=== PATIENT | female | born 1935 | race Caucasian/White ===

== ENCOUNTER 2016-04-20 07:26 | Inpatient (IN) | payer MEDICARE ==
[2016-04-20] VITALS (7 sets, daily range): BP systolic 155–182; BP diastolic 78–80; O2SAT 93–95
[~2016-04-20] VITALS: Ht 160 cm; Wt 69.2 kg
[~2016-04-20 07:26] MED LIST: /ACETCOD2T PO; ACET-71 PO; APAP500T PO; ASPI325T28 PO; AZOR10TA3 PO; AZOR5TAB4 PO; Amlodipine Besylate PO; CALC500T49 PO; CARV3.12 PO; CYMB1CAP4 PO; FLAX1000 PO; GLUCTAB6 PO; HYDR25TAB PO; IBUP600T26 PO; LIDO5TD TD; MAGN250T9 PO; PRIN10TA PO; TRAM50TA2 PO; TYLE325T5 PO; Tramadol Hcl PO; VIT B-12 PO; VIT E PO; VIT250TA PO; VITA100037 PO; VITMTA PO; [UNRECOGNIZED DRUG - CODE] PO
--- NOTE | 2016-04-20 08:02 | REP ---
Clinical: Weakness. Comparison: 04/09/2012. Findings: Mediastinum and cardiac silhouette are stable. Lung leary demonstrate chronic interstitial changes without acute consolidation, effusion, or pneumothorax. Skeletal structures stable. Impression: Chronic stable changes. No acute cardiopulmonary process. Signed by Kj De La Rosa MD 04/20/2016 07:53 A
[2016-04-20 08:06] LABS: BASO % 0.1 % (0.0-1.0); EOS # 0.1 K/mm3 (0.0-0.50); EOS % 0.8 % (0.0-3.0); LARGE UNSTAINED CELL # 0.1 K/mm3 (0.0-0.4); LARGE UNSTAINED CELL % 1.1 % (0.0-4.0); LYMPH # 0.8 K/mm3 (1.5-4.5); LYMPH % 10.5 % (24.0-44.0); MEAN CORPUSCULAR HEMOGLOBIN 28.9 pg (27.0-33.0); MEAN CORPUSCULAR HGB CONC 31.6 g/dl (32.0-36.5); MEAN CORPUSCULAR VOLUME 91.5 fl (80.0-96.0); MONO # 0.4 K/mm3 (0.0-0.8); MONO % 5.9 % (0.0-5.0); NEUTROPHILS # 5.3 K/mm3 (1.8-7.7); NEUTROPHILS % 81.5 % (36.0-66.0); PLATELET COUNT, AUTOMATED 287 k/mm3 (150-450); RED CELL DISTRIBUTION WIDTH 13.1 % (11.5-14.5); WHITE BLOOD COUNT 6.5 K/mm3 (4.0-10.0)
[2016-04-20 08:11] LABS: INR 1.04
--- NOTE | 2016-04-20 08:24 | REP ---
Clinical: Left-sided weakness . Comparison: 06/22/2015 . Findings: Age related atrophy is appreciated. 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 The ventricles, sulci, and cisterns are normal in position and appearance. Do-white differentiation is maintained. No acute intracranial hemorrhage, mass/mass effect, pathology or trauma/injury. No evidence for acute infarction. No extra-axial fluid collection. Calvarium is intact. Paranasal sinuses and mastoid air cells are clear. 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 No evidence for acute intracranial pathology or trauma/injury. Signed by Kj De La Rosa MD 04/20/2016 08:16 A
[2016-04-20 08:31] LABS: ANION GAP 6 MEQ/L (8-16); BLOOD UREA NITROGEN 24 MG/DL (7-18); CALCIUM LEVEL 10.4 MG/DL (8.8-10.2); CARBON DIOXIDE LEVEL 30 MEQ/L (21-32); CHLORIDE LEVEL 105 MEQ/L (98-107); CREATININE FOR GFR 0.95 MG/DL (0.55-1.02); GLOMERULAR FILTRATION RATE > 60.0 (>39); GLUCOSE, FASTING 108 MG/DL (83-110); POTASSIUM SERUM 3.8 MEQ/L (3.5-5.1); SODIUM LEVEL 141 MEQ/L (136-145)
[2016-04-20 10:04] LABS: VENOUS BASE EXCESS 0.4 (-2.0-2.0); VENOUS STANDARD HCO3 24.4 MEQ/L; VENOUS TOTAL CO2 27.8 MEQ/L (24.0-28.0)
--- NOTE | 2016-04-20 10:06 | ECGEPIP ---
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
[2016-04-20] MEDS ORDERED: VITA80005 PO (10:11)
[2016-04-20] MEDS ORDERED: ASCO500T PO (10:11)
[2016-04-20] MEDS ORDERED: ASPIRIN 81 MG CHEW TABLET As Ordered ONE (10:38)
[2016-04-20 10:39] LABS: ALBUMIN 3.9 GM/DL (3.2-5.2); ALBUMIN/GLOBULIN RATIO 0.98 (1.00-1.93); ALKALINE PHOSPHATASE 93 U/L (45-117); ALT/SGPT 16 U/L (12-78); AST/SGOT 24 U/L (15-37); BILIRUBIN,DIRECT 0.1 MG/DL (0.0-0.2); BILIRUBIN,TOTAL 0.4 MG/DL (0.2-1.0); TOTAL PROTEIN 7.9 GM/DL (6.4-8.2)
[2016-04-20 10:41] LABS: VITAMIN B12 LEVEL 1263 PG/ML (247-911)
[2016-04-20] MEDS ORDERED: ISOVUE-370 76% 100ML VIAL (Q9967) As Ordered ONE (11:35)
--- NOTE | 2016-04-20 15:16 | REP ---
CT ANGIO HEAD: HISTORY: TIAs. CONTRAST: Isovue-370, 75 mL. There is no aneurysm or arteriovenous malformation. Calcified atherosclerotic plaques are present in the cavernous and supraclinoid internal carotid arteries. These produce at least mild stenosis. Calcified atherosclerotic plaques are present in the distal vertebral arteries at the craniovertebral junction. These produce at least moderate stenosis. Major intracranial vessels are patent. The vertebral arteries are equal in size. IMPRESSION: 1. There is no aneurysm or arteriovenous malformation. 2. Atherosclerotic disease as described above. Signed by Elijah Hebert MD 04/20/2016 03:19 P
--- NOTE | 2016-04-20 15:22 | REP ---
CT ANGIO NECK: HISTORY: TIAs. CONTRAST: Isovue-370, 75 mL. Calcified atherosclerotic plaques are present at the distal right common carotid artery and origins of the right external and internal carotid arteries. There is moderate stenosis of 60% of the right internal carotid artery at its origin. There is mild stenosis of 20% of the right external carotid artery at its origin. Calcified atherosclerotic plaques are present at the distal left common carotid artery and origins of the left external and internal carotid arteries. There is severe stenosis of 75% of the left internal carotid artery at its origin. There is severe stenosis of 70% of the left external carotid artery at its origin. Small calcified atherosclerotic plaques are present in the common carotid arteries in the lower neck. There is no significant stenosis. Calcified atherosclerotic plaques are present in the vertebral arteries at the craniovertebral junction. The plaques produce at least moderate stenosis. Calcified atherosclerotic plaques are present at the origins of the great vessels and vertebral arteries. There is no significant stenosis. The left vertebral artery arises from the aortic arch. IMPRESSION: 1. Moderate stenosis of 60% of the right internal carotid artery at its origin. 2. Severe stenosis of 75% of the left internal carotid artery at its origin. Signed by Elijah Hebert MD 04/20/2016 03:25 P
--- NOTE | 2016-04-20 15:59 | EDDOCDS ---
Physician Documentation [facility] Name: Sukh Wright Age: 80 yrs Sex: Female : 1935 Arrival Date: 04/20/2016 Time: 07:26 Bed 21 Private MD: Daysi Chatman A Disposition: 04/20/16 10:46 Hospitalization ordered by Alfredo Rivera for Inpatient Admission. Preliminary diagnosis is Transient cerebral ischemic attack, unspecified. - Bed requested for PCU. - Status is Inpatient Admission. hs1 - Condition is Stable. - Problem is new. - Symptoms are resolved. Historical: - Allergies: no known allergies; - Home Meds: 1. aspirin 325 mg Oral TbEC 1 tab once daily (Last dose: 04/19/2016 19:00) 2. Tylenol 325 mg Oral tab 2 tabs as needed for heachache (Last dose: 04/18/2016) - PMHx: blind; Hypertension; - PSHx: Pacemaker Insertion; - Family history: Not pertinent. - Social history: Smoking status: Patient states was never smoker of tobacco. No barriers to communication noted, The patient speaks fluent Swazi. - : The pt / caregiver states he / she is not on anticoagulants. Home medication list is obtained from family members. - Exposure Risk Screening:: None identified. Vital Signs: 04/20 07:38 BP 198 / 95; Pulse 90; Resp 18; Temp 97.8(O); Pulse Ox 97% on R/A; Pain 0/10; nb2 07:48 Weight 70.03 kg / 154.39 lbs; Height 5 ft. 3 in. (160.02 cm); ja5 08:18 BP 192 / 86 (auto/); ja5 08:18 Pulse 80 MON; Pulse Ox 94% ; ja5 09:40 Pulse 82 MON; Pulse Ox 96% ; ja5 09:41 BP 198 / 84 (auto/); ja5 09:52 BP 186 / 83 (auto/); ja5 09:54 Pulse 82 MON; Pulse Ox 95% ; ja5 09:56 BP 188 / 83 (auto/); ja5 09:56 Pulse 82 MON; Pulse Ox 96% ; ja5 10:11 BP 188 / 84 (auto/); ja5 10:11 Pulse 82 MON; Pulse Ox 96% ; ja5 10:25 Pulse 78 MON; Pulse Ox 95% ; ja5 10:26 BP 181 / 84 (auto/); ja5 10:40 Pulse 78 MON; Pulse Ox 93% ; ja5 10:41 BP 182 / 81 (auto/); ja5 10:55 Pulse 80 MON; Pulse Ox 95% ; ja5 10:56 BP 169 / 72 (auto/); ja5 11:08 Pulse 78 MON; Pulse Ox 94% ; ja5 11:11 BP 167 / 107 (auto/); ja5 11:25 Pulse 78 MON; Pulse Ox 96% ; ja5 11:26 BP 166 / 70 (auto/); ja5 11:36 Pulse Ox 97% ; ja5 11:40 Pulse 78 MON; ja5 11:41 BP 173 / 73 (auto/); ja5 11:49 Pulse 78 MON; Pulse Ox 95% ; ja5 11:56 BP 163 / 72 (auto/); ja5 12:10 Pulse 74 MON; ja5 12:11 BP 152 / 72 (auto/); ja5 12:25 Pulse 82 MON; ja5 12:26 BP 174 / 79 (auto/); ja5 12:33 BP 174 / 79; Pulse 94; Resp 20; Temp 97.9(O); Pulse Ox 97% on R/A; Pain 0/10; ja5 12:39 Pulse 88 MON; Pulse Ox 96% ; ja5 12:41 BP 161 / 75 (auto/); ja5 12:55 Pulse 74 MON; Pulse Ox 94% ; ja5 12:56 BP 172 / 77 (auto/); ja5 13:11 BP 166 / 79 (auto/); ja5 13:15 Pulse 74 MON; Pulse Ox 92% ; ja5 13:25 Pulse 78 MON; Pulse Ox 95% ; ja5 13:26 BP 171 / 79 (auto/); ja5 14:25 Pulse 76 MON; Pulse Ox 95% ; ja5 14:26 BP 222 / 133 (auto/); ja5 14:27 Pulse 82 MON; Pulse Ox 95% ; ja5 14:29 BP 221 / 90 (auto/); ja5 14:33 Pulse 74 MON; Pulse Ox 96% ; ja5 14:34 BP 205 / 88 (auto/); ja5 14:59 Pulse 80 MON; Pulse Ox 95% ; ja5 15:00 BP 208 / 93 (auto/); ja5 07:48 Body Mass Index 27.35 (70.03 kg, 160.02 cm) ja5 MDM: 07:36 Professor Of Pathology/Pulse Ox/q 15 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 sd1 07:36 IV Saline Lock ordered. sd1 07:36 Rhythm Strip to chart ordered. sd1 07:37 Basic Metabolic Profile Ordered. EDMS 07:37 CBC with Diff Ordered. EDMS 07:37 Partial Thromboplastin Time Ordered. EDMS 07:38 Prothrombin Time Profile\E\INR Ordered. EDMS 07:38 Chest, 1 View Ordered. EDMS 07:38 Type & Screen Ordered. EDMS 07:38 CT Head Without Contrast Ordered. EDMS 07:38 ECG WITH READING ER PHYS+CARDIAG ordered. EDMS 07:48 BED REQUEST+ADM ordered. EDMS 09:05 Basic Metabolic Profile Reviewed. sd1 09:05 CBC with Diff Reviewed. sd1 09:05 Partial Thromboplastin Time Reviewed. sd1 09:05 Prothrombin Time Profile\E\INR Reviewed. sd1 09:05 Type & Screen Reviewed. sd1 09:05 CT Head Without Contrast Reviewed. sd1 09:05 Chest, 1 View Reviewed. sd1 09:07 UA Ordered. EDMS 09:07 Ammonia ([place] Tube on Ice, Not Pea Green) Ordered. EDMS 09:07 Venous Blood Gas (large pea green tube on ice) Ordered. EDMS 09:07 Urine Culture Ordered. EDMS 09:24 Financial registration complete. lg 09:34 [facility] Payment Agreement was scanned into [employer] and attached to record. lg 09:38 Basic Metabolic Profile Reviewed. sd1 09:38 TROPONIN Reviewed. sd1 10:09 Basic Metabolic Profile Reviewed. sd1 10:09 Venous Blood Gas (large pea green tube on ice) Reviewed. sd1 10:09 CARDIAC INJURY PROFILE Reviewed. sd1 10:09 TROPONIN Reviewed. sd1 10:09 THYROID STIMULATING HORMONE Reviewed. sd1 10:11 Aspirin Chewable Tablet 324 mg PO once ordered. sd1 10:13 Drug Eval Toxicology ED Only Ordered. EDMS 10:17 ACETAMINOPHEN LEVEL Ordered. EDMS 10:17 ETHYL ALCOHOL (ETHANOL) Ordered. EDMS 10:17 LIVER PROFILE Ordered. EDMS 10:17 SALICYLATE LEVEL Ordered. EDMS 10:17 VITAMIN B12 LEVEL Ordered. EDMS 11:28 CARDIAC INJURY PROFILE Ordered. EDMS 11:28 CARDIAC INJURY PROFILE Ordered. EDMS 11:28 TROPONIN Ordered. EDMS 11:28 TROPONIN Ordered. EDMS 11:29 Admission / Observation Status ordered. EDMS 11:29 ECHOCARD,DOPPLER/COLOR FLOW ordered. EDMS 11:29 CT ANGIO HEAD Ordered. EDMS 11:29 CT ANGIO NECK Ordered. EDMS 11:29 NPO DIET ordered. EDMS Administered Medications: 10:41 Drug: Aspirin 324 mg [aspirin 81 mg chewable tablet (4 tabs)] Route: PO; ja5 Signatures: Dispatcher [employer] EDMary Rausch MD MD sd1 Corwin Prajapati, Reg Reg lg Lizy Feliz, RN RN hs1 Fernanda Martines, BENOIT RN sls2 Laura Encinas,RN RN ja5 The chart was reviewed and I authenticate all verbal orders and agree with the evaluation and treatment provided.Corrections: (The following items were deleted from the chart) 09:13 09:07 CARDIAC INJURY PROFILE+LAB ordered. EDGA EDMS 09:13 09:07 TROPONIN+LAB ordered. EDMS EDMS 09:13 09:09 THYROID STIMULATING HORMONE+LAB ordered. EDMS EDMS 10:17 10:13 ACETAMINOPHEN LEVEL+LAB ordered. EDMS EDMS 10:17 10:13 ETHYL ALCOHOL (ETHANOL)+LAB ordered. EDMS EDMS 10:17 10:13 LIVER PROFILE+LAB ordered. EDMS EDMS 10:17 10:13 SALICYLATE LEVEL+LAB ordered. EDMS EDMS 10:17 10:14 VITAMIN B12 LEVEL+LAB ordered. EDMS EDMS Attachments: 09:34 [facility]
--- NOTE | 2016-04-20 16:00 | EDDOCDS ---
Nurse's Notes [facility] Name: Sukh Wright Age: 80 yrs Sex: Female : 1935 Arrival Date: 04/20/2016 Time: 07:26 Bed 21 Private MD: Daysi Chatman A Diagnosis: Transient cerebral ischemic attack, unspecified Presentation: 04/20 07:29 Presenting complaint: EMS states: were called to residence for possible stroke by 4 family. Allegedly patient was last seen well yesterday at noon. EMS found left leg to be weak. ." EMS states that patient was answering questions well and then was "seeing snow and krista of hay in the ambulance". Suicide/Homicide risk assessment- the patient denies having any suicidal and/or homicidal ideations and does not present with any other emotional, behavioral or mental health complaints. Status: Patient is not a field service rep or dependent. Transition of care: patient was not received from another setting of care. Care prior to arrival: See EMS report. Saline lock initiated. Glucose check. 126 mg/dl. 07:29 Acuity: TALI Level 2 [facility] 07:29 Method Of Arrival: Ambulance [facility] 07:30 Adult Sepsis Screening: Patient has new or worsening altered mentation ([address] [facility] Patient's respiratory rate is less than 22. Systolic blood pressure is greater than 100. Patient has a qSOFA score of 1- Negative Sepsis Screen. Historical: - Allergies: no known allergies; - Home Meds: 1. aspirin 325 mg Oral TbEC 1 tab once daily (Last dose: 04/19/2016 19:00) 2. Tylenol 325 mg Oral tab 2 tabs as needed for heachache (Last dose: 04/18/2016) - PMHx: blind; Hypertension; - PSHx: Pacemaker Insertion; - Family history: Not pertinent. - Social history: Smoking status: Patient states was never smoker of tobacco. No barriers to communication noted, The patient speaks fluent Eritrean. - : The pt / caregiver states he / she is not on anticoagulants. Home medication list is obtained from family members. - Exposure Risk Screening:: None identified. Screenin:44 Screening information is obtained from the patient, family members. Fall risk: At risk ja5 due to Blindness. Assistance ADL's: Requires assistance with meal preparation, this assistance is provided by family members, bathing, assistance is provided by family members, dressing, assistance is provided by family members, housework, assistance is provided by family members, medication administration, assistance is provided by family members. Abuse/DV Screen: The patient / caregiver reports he/she is: not in a situation that causes fear, pain or injury. Nutritional screening: On no prescribed diet. Advance Directives: Currently, there is a health care proxy, Alysia Rodriguez, daughter. There is an active DNR order and the pt has a copy here at this time. There is a living will, and a copy is available at this time. There is an active Power of Belt Maker Helper, Alysia Rodriguez, daughter. home support is adequate. Assessment: 07:40 Neurological: Level of Consciousness is awake, alert, Oriented to person, place, time, ja5 Benzene Worker are equal bilaterally Moves all extremities. Speech is normal, Facial symmetry appears normal. 07:58 General: Appears in no apparent distress, comfortable, Behavior is appropriate for age, ja5 cooperative. Pain: Denies pain. Neurological: Level of Consciousness is awake, alert, Oriented to person, place, time, Benzene Worker are equal bilaterally Moves all extremities. Speech is normal, Facial symmetry appears normal. Cardiovascular: Capillary refill < 3 seconds Heart tones S1 S2 present. Respiratory: Airway is patent Respiratory effort is even, unlabored, Breath sounds are clear bilaterally. Derm: Skin is pink, warm & dry. Musculoskeletal: Circulation, motion, and sensation intact. 08:32 General: Patient is laying in stretcher asleep, arouses easily and is alert and ja5 oriented. Patient denies dizziness, numbness, her speech is clear, she has had intermittent moments of confusion/hallucinations of which the provider is aware. At 0820 patient stated she sees a leopard in the room and asked what I was wearing on my head. Respirations are even and unlabored, color is pink. SR with PVS showing on cardiac exercise physiologist. Bed in low position, call warren in reach, daughter is at bedside. . 09:55 General: Patient laying supine in stretcher, denies dizziness is not currently having ja5 any confusion. Respirations are even and unlabored, color is pink, O2 sat 96% on RA. Daughter is currently at bedside, patient states she has no needs at this time.. 10:42 General: Patient is awake, alert and oriented, denies dizziness, speech is clear, she ja5 moves all extremities. Respirations are even and unlabored, color is pink, SR on cardiac exercise physiologist, as she lays in stretcher with her daughter at the bedside. Blood pressure has been consistently elevated, see vital signs, provider has been made aware of these trends.. 12:34 General: Patient back from her CT scan which she tolerated well. She is back in room ja5 laying in her stretcher, denies dizziness, tingling, numbness, her speech is clear and moves all extremities. SR on cardiac exercise physiologist, respirations are even and unlabored, color is pink, O\\T\\ sat reading 97% on room air. Call warren in reach, bed in low position.. 14:29 General: Pt lying on stretcher. Asking, "what is the breed of that dog over there?" Pt goldy is aware that she is in the hospital. Pt has pulled out right antecubital saline lock. No bleeding from site. Left forearm saline lock wrapped with Conform dressing. Vital Signs: 07:38 BP 198 / 95; Pulse 90; Resp 18; Temp 97.8(O); Pulse Ox 97% on R/A; Pain 0/10; nb2 07:48 Weight 70.03 kg; Height 5 ft. 3 in. (160.02 cm); ja5 08:18 BP 192 / 86 (auto/); ja5 08:18 Pulse 80 MON; Pulse Ox 94% ; ja5 09:40 Pulse 82 MON; Pulse Ox 96% ; ja5 09:41 BP 198 / 84 (auto/); ja5 09:52 BP 186 / 83 (auto/); ja5 09:54 Pulse 82 MON; Pulse Ox 95% ; ja5 09:56 BP 188 / 83 (auto/); ja5 09:56 Pulse 82 MON; Pulse Ox 96% ; ja5 10:11 BP 188 / 84 (auto/); ja5 10:11 Pulse 82 MON; Pulse Ox 96% ; ja5 10:25 Pulse 78 MON; Pulse Ox 95% ; ja5 10:26 BP 181 / 84 (auto/); ja5 10:40 Pulse 78 MON; Pulse Ox 93% ; ja5 10:41 BP 182 / 81 (auto/); ja5 10:55 Pulse 80 MON; Pulse Ox 95% ; ja5 10:56 BP 169 / 72 (auto/); ja5 11:08 Pulse 78 MON; Pulse Ox 94% ; ja5 11:11 BP 167 / 107 (auto/); ja5 11:25 Pulse 78 MON; Pulse Ox 96% ; ja5 11:26 BP 166 / 70 (auto/); ja5 11:36 Pulse Ox 97% ; ja5 11:40 Pulse 78 MON; ja5 11:41 BP 173 / 73 (auto/); ja5 11:49 Pulse 78 MON; Pulse Ox 95% ; ja5 11:56 BP 163 / 72 (auto/); ja5 12:10 Pulse 74 MON; ja5 12:11 BP 152 / 72 (auto/); ja5 12:25 Pulse 82 MON; ja5 12:26 BP 174 / 79 (auto/); ja5 12:33 BP 174 / 79; Pulse 94; Resp 20; Temp 97.9(O); Pulse Ox 97% on R/A; Pain 0/10; ja5 12:39 Pulse 88 MON; Pulse Ox 96% ; ja5 12:41 BP 161 / 75 (auto/); ja5 12:55 Pulse 74 MON; Pulse Ox 94% ; ja5 12:56 BP 172 / 77 (auto/); ja5 13:11 BP 166 / 79 (auto/); ja5 13:15 Pulse 74 MON; Pulse Ox 92% ; ja5 13:25 Pulse 78 MON; Pulse Ox 95% ; ja5 13:26 BP 171 / 79 (auto/); ja5 14:25 Pulse 76 MON; Pulse Ox 95% ; ja5 14:26 BP 222 / 133 (auto/); ja5 14:27 Pulse 82 MON; Pulse Ox 95% ; ja5 14:29 BP 221 / 90 (auto/); ja5 14:33 Pulse 74 MON; Pulse Ox 96% ; ja5 14:34 BP 205 / 88 (auto/); ja5 14:59 Pulse 80 MON; Pulse Ox 95% ; ja5 15:00 BP 208 / 93 (auto/); ja5 07:48 Body Mass Index 27.35 (70.03 kg, 160.02 cm) ja5 Vitals: 07:38 Log In Time N/A - ambulance arrival. nb2 ED Course: 07:25 The patient / caregiver is instructed regarding the plan of care and ED course. jc4 07:28 Patient visited by Lavinia Ahn, Monogram Technician. lbd 07:28 Patient moved to Waiting lbd 07:29 Daysi Chatman is Private Physician. lbd 07:29 Rola Brown RN is Primary Nurse. lbd 07:29 [place], BENOIT is Primary Nurse. lbd 07:29 Laura Encinas,BENOIT is Primary Nurse. lbd 07:29 Patient moved to 4 lbd 07:34 Triage Initiated jc4 07:35 Mary Bonilla MD is Attending Physician. sd1 07:35 Patient visited by Mary Bonilla MD. sd1 07:39 Patient visited by Amber Salazar. nb2 07:44 EKG done. (by ED staff). Reviewed by Mary Bonilla MD. jrd 07:57 Basic Metabolic Profile Sent. ja5 07:57 CBC with Diff Sent. ja5 07:57 Partial Thromboplastin Time Sent. ja5 07:57 Prothrombin Time Profile\\E\\INR Sent. ja5 07:57 Type & Screen Sent. ja5 08:01 Maintain field IV. Dressing intact. Site clean & dry. Gauge & site: 20g left forearm. ja5 08:02 Inserted saline lock: 20 gauge in right antecubital area. ja5 08:03 Chest, 1 View Returned. EDMS 08:05 Primary Nurse role handed off by Rola Brown RN mlb1 08:44 Patient visited by Laura Encinas RN. ja5 08:44 CT Head Without Contrast Returned. EDMS 09:34 [facility] Payment Agreement was scanned into [employer] and attached to record. lg 09:55 Patient visited by Laura Encinas RN. ja5 09:59 Venous Blood Gas (large pea green tube on ice) Sent. jc4 09:59 Ammonia (Little Green Tube on Ice, Not Pea Green) Sent. jc4 10:44 Patient visited by Laura Encinas RN. ja5 10:46 Alfredo Rivera is Hospitalizing Provider. sd1 10:49 ELECTROCARDIOGRAM ADULT Returned. EDMS 12:18 Patient moved to Admit Hold kpj 13:31 Patient visited by Lorie Segundo. cmb 13:32 Patient visited by Lorie Segundo. cmb 13:32 Verbal reassurance given. cmb 14:24 Patient visited by Lorie Segundo. cmb 15:13 Patient moved to [facility] 15:40 CT ANGIO HEAD Returned. EDMS 15:40 CT ANGIO NECK Returned. EDMS Administered Medications: 10:41 Drug: Aspirin 324 mg [aspirin 81 mg chewable tablet (4 tabs)] Route: PO; ja5 Order Results: Lab Order: Basic Metabolic Profile; SPEC' 04/20/16 07:55 Test: GLUCOSE, FASTING; Value: 108; Range: 83-110; Units: MG/DL; Status: F Test: BLOOD UREA NITROGEN; Value: 24; Range: 7-18; Abnormal: Above high normal; Units: MG/DL; Status: F Test: CREATININE FOR GFR; Value: 0.95; Range: 0.55-1.02; Units: MG/DL; Status: F Test: GLOMERULAR FILTRATION RATE; Value: > 60.0; Range: >39; Status: F Test: SODIUM LEVEL; Value: 141; Range: 136-145; Units: MEQ/L; Status: F Test: POTASSIUM SERUM; Value: 3.8; Range: 3.5-5.1; Units: MEQ/L; Status: F Test: CHLORIDE LEVEL; Value: 105; Range: 98-107; Units: MEQ/L; Status: F Test: CARBON DIOXIDE LEVEL; Value: 30; Range: 21-32; Units: MEQ/L; Status: F Test: ANION GAP; Value: 6; Range: 8-16; Abnormal: Below low normal; Units: MEQ/L; Status: F Test: CALCIUM LEVEL; Value: 10.4; Range: 8.8-10.2; Abnormal: Above high normal; Units: MG/DL; Status: F Test Note: ; Units are mL/min/1.73 m2 Chronic Kidney Disease Staging per NKF: Stage I & II GFR >=60 Normal to Mildly Decreased Stage III GFR 30-59 Moderately Decreased Stage IV GFR 15-29 Severely Decreased Stage V GFR <15 Very Little GFR Left ESRD GFR <15 on CEMETERY LABORER Lab Order: CBC with Diff; SPEC' 04/20/16 07:56 Test: WHITE BLOOD COUNT; Value: 6.5; Range: 4.0-10.0; Units: K/mm3; Status: F Test: RED BLOOD COUNT; Value: 3.84; Range: 4.00-5.40; Abnormal: Below low normal; Units: M/mm3; Status: F Test: HEMOGLOBIN; Value: 11.1; Range: 12.0-16.0; Abnormal: Below low normal; Units: g/dl; Status: F Test: HEMATOCRIT; Value: 35.2; Range: 36.0-47.0; Abnormal: Below low normal; Units: %; Status: F Test: MEAN CORPUSCULAR VOLUME; Value: 91.5; Range: 80.0-96.0; Units: fl; Status: F Test: MEAN CORPUSCULAR HEMOGLOBIN; Value: 28.9; Range: 27.0-33.0; Units: pg; Status: F Test: MEAN CORPUSCULAR HGB CONC; Value: 31.6; Range: 32.0-36.5; Abnormal: Below low normal; Units: g/dl; Status: F Test: RED CELL DISTRIBUTION WIDTH; Value: 13.1; Range: 11.5-14.5; Units: %; Status: F Test: PLATELET COUNT, AUTOMATED; Value: 287; Range: 150-450; Units: k/mm3; Status: F Test: NEUTROPHILS %; Value: 81.5; Range: 36.0-66.0; Abnormal: Above high normal; Units: %; Status: F Test: LYMPH %; Value: 10.5; Range: 24.0-44.0; Abnormal: Below low normal; Units: %; Status: F Test: MONO %; Value: 5.9; Range: 0.0-5.0; Abnormal: Above high normal; Units: %; Status: F Test: EOS %; Value: 0.8; Range: 0.0-3.0; Units: %; Status: F Test: BASO %; Value: 0.1; Range: 0.0-1.0; Units: %; Status: F Test: LARGE UNSTAINED CELL %; Value: 1.1; Range: 0.0-4.0; Units: %; Status: F Test: NEUTROPHILS #; Value: 5.3; Range: 1.8-7.7; Units: K/mm3; Status: F Test: LYMPH #; Value: 0.8; Range: 1.5-4.5; Abnormal: Below low normal; Units: K/mm3; Status: F Test: MONO #; Value: 0.4; Range: 0.0-0.8; Units: K/mm3; Status: F Test: EOS #; Value: 0.1; Range: 0.0-0.50; Units: K/mm3; Status: F Test: BASO #; Value: 0.0; Range: 0.0-0.2; Units: K/mm3; Status: F Test: LARGE UNSTAINED CELL #; Value: 0.1; Range: 0.0-0.4; Units: K/mm3; Status: F Lab Order: Partial Thromboplastin Time; 04/20/16 07:55 Test: PARTIAL THROMBOPLASTIN TIME; Value: 32.6; Range: 26.6-37.1; Units: SECONDS; Status: F Lab Order: Prothrombin Time Profile\\E\\INR; 04/20/16 07:55 Test: PROTHROMBIN TIME; Value: 13.7; Range: 12.3-14.5; Units: SECONDS; Status: F Test: INR; Value: 1.04; Status: F Test Note: ; THERAPUTIC HUMAN INR VALUES INDICATIONS NORMAL RANGES PROPHYLAXIS/TREATMENT OF: VENOUS THROMBOSIS 2.0-3.0 PULMONARY EMBOLISM 2.0-3.0 PREVENTION OF SYSTEMIC EMBOLISM FROM: TISSUE HEART VALVES 2.0-3.0 ACUTE MYOCARDIAL INFARCTION 2.0-3.0 VALVULAR HEART DISEASE 2.0-3.0 ATRIAL FIBRILLATION 2.0-3.0 MECHANICAL VALVES(HIGH RISK) 2.5-3.5 RECURRENT MYOCARDIAL INFARCTION 2.5-3.5 Lab Order: Type & Screen; 04/20/16 07:56 Test: BLOOD TYPE; Value: B POS; Status: F Test: AB SCREEN (INDIRECT MOO)VIS; Value: NEGATIVE; Status: F Lab Order: Ammonia (Little Green Tube on Ice, Not Pea Green); 04/20/16 09:36 Test: AMMONIA; Value: < 10; Range: <32; Units: uMOL/L; Status: F Lab Order: Venous Blood Gas (large pea green tube on ice); 04/20/16 09:36 Test: VENOUS PH; Value: 7.357; Range: 7.330-7.430; Units: UNITS; Status: F Test: VENOUS PARTIAL PRESSURE CO2; Value: 48.0; Range: 38.0-50.0; Units: mmHg; Status: F Test: VENOUS PARTIAL PRESSURE O2; Value: 44.0; Range: 30.0-50.0; Units: mmHg; Status: F Test: VENOUS TOTAL CO2; Value: 27.8; Range: 24.0-28.0; Units: MEQ/L; Status: F Test: VENOUS HCO3; Value: 26.3; Range: 23.0-27.0; Units: MEQ/L; Status: F Test: VENOUS BASE EXCESS; Value: 0.4; Range: -2.0-2.0; Status: F Test: VENOUS STANDARD HCO3; Value: 24.4; Units: MEQ/L; Status: F Test: VENOUS O2 SATURATION; Value: 77.0; Range: 60.0-80.0; Units: %; Status: F Lab Order: CARDIAC INJURY PROFILE; [facility]' 04/20/16 07:55 Test: CPK CREATINE PHOSPHOKINASE; Value: 188; Range: 26-192; Units: U/L; Status: F Test: CK-MB VALUE MASS; Value: 1.8; Range: 0.0-3.6; Units: NG/ML; Status: F Test: MB/CK RELATIVE INDEX; Value: 0.95; Range: < OR =4; Status: F Test Note: ; DIAGNOSIS CRITERIA MMB ng/ml Relative Index (RI) NON-AMI < or = 5 N/A DO ZONE > 5 < or = 4 AMI > 5 > 4 Lab Order: TROPONIN; SPEC' 04/20/16 07:55 Test: TROPONIN I; Value: 0.02; Range: < 0.10; Units: NG/ML; Status: F Test Note: ; Troponin I Reference Interval for Embrace LOCI: 99th Percentile= 0.00-0.045 ng/ml Risk Stratification: <= 0.10 ng/ml Decreased Risk for Adverse Clinical Events. 0.10-1.50 ng/ml Increased Risk for Adverse Clinical Events. Evaluation of additional criterion and/or repeat testing in 2-6 hours is suggested to rule out myocardial damage. >= 1.50 ng/ml Indicative of Myocardial Injury. Lab Order: THYROID STIMULATING HORMONE; 04/20/16 Test: THYROID STIMULATING HORMONE; Value: 2.690; Range: 0.358-3.740; Units: uIU/ML; Status: F Lab Order: ACETAMINOPHEN LEVEL; 04/20/16:55 Test: ACETAMINOPHEN LEVEL; Value: < 2.0; Range: 10.0-30.0; Abnormal: Below low normal; Units: UG/ML; Status: F Lab Order: ETHYL ALCOHOL (ETHANOL); 04/20/16: Test: ETHYL ALCOHOL (ETHANOL); Value: < 0.003; Range: 0.000-0.010; Units: %; Status: F Lab Order: LIVER PROFILE; 04/20/16 Test: AST/SGOT; Value: 24; Range: 15-37; Units: U/L; Status: F Test: ALT/SGPT; Value: 16; Range: 12-78; Units: U/L; Status: F Test: ALKALINE PHOSPHATASE; Value: 93; Range: 45-117; Units: U/L; Status: F Test: BILIRUBIN,TOTAL; Value: 0.4; Range: 0.2-1.0; Units: MG/DL; Status: F Test: BILIRUBIN,DIRECT; Value: 0.1; Range: 0.0-0.2; Units: MG/DL; Status: F Test: TOTAL PROTEIN; Value: 7.9; Range: 6.4-8.2; Units: GM/DL; Status: F Test: ALBUMIN; Value: 3.9; Range: 3.2-5.2; Units: GM/DL; Status: F Test: ALBUMIN/GLOBULIN RATIO; Value: 0.98; Range: 1.00-1.93; Abnormal: Below low normal; Status: F Lab Order: SALICYLATE LEVEL; 04/20/16 Test: SALICYLATE LEVEL; Value: < 1.7; Range: 5.0-30.0; Abnormal: Below low normal; Units: MG/DL; Status: F Lab Order: VITAMIN B12 LEVEL; 04/20/16: Test: VITAMIN B12 LEVEL; Value: 1263; Range: 247-911; Abnormal: Above high normal; Units: PG/ML; Status: F Test Note: ; VITAMIN B12 NORMAL RANGE NORMAL 247 - 911 PG/ML INDETERMINATE 211 - 246 PG/ML DEFICIENT LESS THAN 211 PG/ML Lab Order: CARDIAC INJURY PROFILE; SPEC'M 04/20/16 11:44 Test: CPK CREATINE PHOSPHOKINASE; Value: 183; Range: 26-192; Units: U/L; Status: F Test: CK-MB VALUE MASS; Value: 1.8; Range: 0.0-3.6; Units: NG/ML; Status: F Test: MB/CK RELATIVE INDEX; Value: 0.98; Range: < OR =4; Status: F Test Note: ; DIAGNOSIS CRITERIA MMB ng/ml Relative Index (RI) NON-AMI < or = 5 N/A DO ZONE > 5 < or = 4 AMI > 5 > 4 Lab Order: TROPONIN; SPEC'M 04/20/16 11:44 Test: TROPONIN I; Value: 0.03; Range: < 0.10; Abnormal: Delta; Units: NG/ML; Status: F Test Note: ; Troponin I Reference Interval for Embrace LOCI: 99th Percentile= 0.00-0.045 ng/ml Risk Stratification: <= 0.10 ng/ml Decreased Risk for Adverse Clinical Events. 0.10-1.50 ng/ml Increased Risk for Adverse Clinical Events. Evaluation of additional criterion and/or repeat testing in 2-6 hours is suggested to rule out myocardial damage. >= 1.50 ng/ml Indicative of Myocardial Injury. Radiology Order: CT Head Without Contrast Test: CT Head Without Contrast REASON FOR EXAMINATION: left weak >4.5 hours; Clinical: Left-sided weakness .; ; Comparison: 06/22/2015 .; ; Findings:; Age related atrophy is appreciated. 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 The ventricles, sulci, and cisterns are; normal in position and appearance. Do-white differentiation is maintained. No; acute intracranial hemorrhage, mass/mass effect, pathology or trauma/injury. No; evidence for acute infarction. No extra-axial fluid collection. Calvarium is; intact. Paranasal sinuses and mastoid air cells are clear.; ; Impression:; Age related atrophy and microvascular ischemic changes including old right; frontal and left basal ganglia infarcts.; No evidence for acute intracranial pathology or trauma/injury.; ; ; Signed by; Kj De La Rosa MD 04/20/2016 08:16 A; Radiology Order: Chest, 1 View Test: Chest, 1 View REASON FOR EXAMINATION: weakness; Clinical: Weakness.; ; Comparison: 04/09/2012.; ; Findings:; Mediastinum and cardiac silhouette are stable. Lung leary demonstrate chronic; interstitial changes without acute consolidation, effusion, or pneumothorax.; Skeletal structures stable.; ; Impression:; Chronic stable changes. No acute cardiopulmonary process.; ; ; Signed by; Kj De La Rosa MD 04/20/2016 07:53 A; Radiology Order: ELECTROCARDIOGRAM ADULT Test: ELECTROCARDIOGRAM ADULT REASON FOR EXAMINATION: weakness; Stationary ECG Study; [facility] ED; ; Test Date: 2016-04-20; Pat Name: SUKH WRIGHT Department:; Room: -; Gender: F Audio Tape Librarian: naif; : 1935 Requested By: Mary Bonilla; Order Number: [id number] Reading MD: Mary Bonilla; Measurements; Intervals [place]; Rate: 84 P: 46; PA: 151 QRS: -59; QRSD: 167 T: 99; QT: 431; QTc: 512; Interpretive Statements; ELECTRONIC VENTRICULAR PACEMAKER; ABNORMAL RHYTHM ECG; SINUS RHYTHM; SIMILAR 06/22/15; Electronically Signed On 04-20-2016 10:06:25 EST by Mary Bonilla; Radiology Order: CT ANGIO HEAD Test: CT ANGIO HEAD REASON FOR EXAMINATION: tia; unable to obatin mri; CT ANGIO HEAD:; ; HISTORY: TIAs.; ; CONTRAST: Isovue-370, 75 mL.; ; There is no aneurysm or arteriovenous malformation. Calcified atherosclerotic; plaques are present in the cavernous and supraclinoid internal carotid arteries.; These produce at least mild stenosis. Calcified atherosclerotic plaques are; present in the distal vertebral arteries at the craniovertebral junction. These; produce at least moderate stenosis. Major intracranial vessels are patent. The; vertebral arteries are equal in size.; ; IMPRESSION:; ; 1. There is no aneurysm or arteriovenous malformation.; ; 2. Atherosclerotic disease as described above.; ; ; Signed by; Elijah Hebert MD 04/20/2016 03:19 P; Radiology Order: CT ANGIO NECK Test: CT ANGIO NECK REASON FOR EXAMINATION: tia; unable to obatin mri; CT ANGIO NECK:; ; HISTORY: TIAs.; ; CONTRAST: Isovue-370, 75 mL.; ; Calcified atherosclerotic plaques are present at the distal right common carotid; artery and origins of the right external and internal carotid arteries. There is; moderate stenosis of 60% of the right internal carotid artery at its origin.; There is mild stenosis of 20% of the right external carotid artery at its origin.; Calcified atherosclerotic plaques are present at the distal left common carotid; artery and origins of the left external and internal carotid arteries. There is; severe stenosis of 75% of the left internal carotid artery at its origin. There; is severe stenosis of 70% of the left external carotid artery at its origin.; Small calcified atherosclerotic plaques are present in the common carotid; arteries in the lower neck. There is no significant stenosis. Calcified; atherosclerotic plaques are present in the vertebral arteries at the; craniovertebral junction. The plaques produce at least moderate stenosis.; Calcified atherosclerotic plaques are present at the origins of the great vessels; and vertebral arteries. There is no significant stenosis. The left vertebral; artery arises from the aortic arch.; ; IMPRESSION:; ; 1. Moderate stenosis of 60% of the right internal carotid artery at its origin.; ; 2. 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 sd1 15:58 Patient left the ED. hs1 Signatures: Dispatcher [employer] EDMS Mary Bonilla MD MD sd1 Lavinia Ahn, Monogram Technician Unit lbd Daysi Albarado RN RN Margarette Gil RN Corwin Escalante mcp, Reg Reg lg Barney, Michael B, RN RN mlb1 Lizy Feliz RN RN hs1 [place] RN RN jc4 Lorie Segundo cmb Juan Diego Kaiser, IRRIGATION SPECIALIST IRRIGATION SPECIALIST Amber Rodriguez2 Laura EncinasRN RN ja5 Corrections: (The following items were deleted from the chart) 11:05 08:32 General: Patient is laying in stretcher asleep, arouses easily and is alert and ja5 oriented. Patient denies dizziness, numbness, her speech is clear, she has had intermittent moments of confusion/hallucinations. At 0820 patient stated she sees a leopard in the room and asked what I was wearing on my head. Respirations are even and unlabored, color is pink. SR with PVS showing on cardiac exercise physiologist. Bed in low position, call warren in reach, daughter is at bedside. . ja5 15:08 10:42 General: Patient is awake, alert and oriented, denies dizziness, speech is clear, ja5 she moves all extremities. Respirations are even and unlabored, color is pink, SR on cardiac exercise physiologist, as she lays in stretcher with her daughter at the bedside.. ja5 MTDD
--- NOTE | 2016-04-20 16:09 | HPEPDOC ---
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 Daughter states that the patient generally needs supervision every 3 hours, however over the past 24 hours she has had paranoia and hallucinations. The patient has been noted to be in contact of stool while standing and being awake , spreading food all over the counter, standing in the bathroom and banging on the wall. Patient generally needs a walker at baseline for ambulation. Given patient's significant altered mental status, daughter decided to call EMS. EMS had noted that the patient had left-sided hemiparesis. ED physician notes that's upon evaluation, she noted that the patient's has an age of 2. EMS noted that there is significant improvements of her left-sided hemiparesis. The patient is awake and oriented 3. Daughter states she is back to her baseline. I'm not sure whether the patient has a history of atrial fibrillation. Daughter states that the patient was offered blood thinners by Dr. Bills got one point however she refused them. I have asked Dr. Ulloa to look into the clinic records, and he will get back to me. PAST MEDICAL HISTORY: As per HPI PAST SURGICAL HISTORY: PPM SOCIAL HISTORY: No tobacco, alcohol, illicit drug use. Lives with daughter. FAMILY HISTORY: Noncontributory ALLERGIES: Please see below. REVIEW OF SYSTEMS: HEENT: Denies sore throat/headache CARDIOVASCULAR: Denies chest pain/palpitations RESPIRATORY: No shortness of breath/cough GASTROINTESTINAL: denies nausea/vomiting GENITOURINARY: Denies dysuria/urinary urgency. MUSCULOSKELETAL: Denies myalgias/arthralgias NEUROLOGICAL: Denies any focal weakness Rest of ROS negative. HOME MEDICATIONS: Please see below. PHYSICAL EXAMINATION: General: No acute distress, laying comfortably in bed. HEENT: Moist mucous membranes. Neck: No JVD or lymphadenopathy Cardiac: RRR, No murmurs Pulm: Clear to auscultation b/l. No wheezing, rhonchi Abd: NT/ND + BS Ext: No edema or cyanosis Neuro: Strength 5/5 BUE and BLE. CN 2-12 intact. 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 Negative pronator drift. Negative Babinki. Sensation to fine touch intact. NIH 0. LABORATORY DATA: See below. IMAGING: CTA of the neck 04/20/16 IMPRESSION: 1. Moderate stenosis of 60% of the right internal carotid artery at its origin. 2. Severe stenosis of 75% of the left internal carotid artery at its origin. CTA head 04/20/16 IMPRESSION: 1. There is no aneurysm or arteriovenous malformation. 2. Atherosclerotic disease as described above. 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 No evidence for acute intracranial pathology or trauma/injury. Chest x-ray 04/20/16 Impression: Chronic stable changes. No acute cardiopulmonary process. MICROBIOLOGY: Please see below. ASSESSMENT/PLAN: 1. TIA- patient with left-sided hemiparesis that has resolved by the time the patient presented to the ED. Unable to obtain MRI given PPN. CTA of the head and neck (see above). CT of the head without contrast notable for prior strokes. 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 Patient had been on aspirin 325 daily, and the daughter states she gives it to her daily. We 'll start atorvastatin. Change aspirin to Plavix. Neuro checks. PT/OT/ST. 2. Altered mental status- questionable whether patient has baseline dementia. TSH, B12, ammonia level within normal limits. Electrolytes within normal limits. No new medications have been started. Daughter states she may have trouble taking care of her home however will continue to try. We'll have PFS onboard. 3. Carotid stenosis- patient has refused aggressive therapy in the past. Given the findings of severe stenosis within the left ICA, we will adjust these findings with the daughter and the patient. 4. Elevated blood pressure - we'll maintain systolic blood pressure between 140- 180 over the next 24 hours. 5. History of third-degree AV block status post PPM DVT prophylaxis- enoxaparin. Daughter (Jia) phone number is [phone]. Vital Signs Vital Signs Date Time Temp Pulse Resp B/P Pulse Ox O2 Delivery O2 Flow Rate FiO2 04/20/16 15:30 96.7 78 18 182/80 96 Room Air Laboratory Data Labs 24H Laboratory Tests 2 04/20/16 07:55: Acetaminophen Level < 2.0L, Activated Partial Thromboplast Time 32.6, Aspartate Amino Transf (AST/SGOT) 24, Alanine Aminotransferase (ALT/SGPT) 16, Alkaline Phosphatase 93, Total Bilirubin 0.4, Direct Bilirubin 0.1, Albumin 3.9, Albumin/ Globulin Ratio 0.98L, Anion Gap 6L, Calcium Level 10.4H, Creatine Kinase MB 1.8 , Creatine Kinase MB Relative Index 0.95, Ethyl Alcohol Level < 0.003, Glomerular Filtration Rate > 60.0, Prothromb Time International Ratio 1.04, Prothrombin Time 13.7, Salicylates Level < 1.7L, Thyroid Stimulating Hormone ( TSH) 2.690, Total Creatine Kinase 188, Total Protein 7.9, Troponin I 0.02, Vitamin B12 Level 1263H 04/20/16 07:56: White Blood Count 6.5, Red Blood Count 3.84L, Hemoglobin 11.1L, Hematocrit 35.2L , Mean Corpuscular Volume 91.5, Mean Corpuscular Hemoglobin 28.9, Mean Corpuscular Hemoglobin Concent 31.6L, Red Cell Distribution Width 13.1, Platelet Count 287, Neutrophils (%) (Auto) 81.5H, Lymphocytes (%) (Auto) 10.5L, Monocytes (%) (Auto) 5.9H, Eosinophils (%) (Auto) 0.8, Basophils (%) (Auto) 0.1 , Neutrophils # (Auto) 5.3, Lymphocytes # (Auto) 0.8L, Monocytes # (Auto) 0.4, Eosinophils # (Auto) 0.1, Basophils # (Auto) 0.0, Large Unclassified Cells # 0.1 , Large Unclassified Cells % 1.1 04/20/16 09:36: Ammonia < 10, Blood Gas Bicarbonate Standard 24.4, Venous Blood Base Excess 0.4 , Venous Blood pH 7.357, Venous Blood Partial Pressure CO2 48.0, Venous Blood Partial Pressure O2 44.0, Venous Blood Total Carbon Dioxide 27.8, Venous Blood HCO3 26.3, Venous Blood Oxygen Saturation 77.0 04/20/16 11:44: Creatine Kinase MB 1.8, Creatine Kinase MB Relative Index 0.98, Total Creatine Kinase 183, Troponin I 0.03# CBC/BMP Laboratory Tests 04/20/16 07:55 04/20/16 07:56 Red Blood Count 3.84 L, Mean Corpuscular Volume 91.5, Mean Corpuscular Hemoglobin 28.9, Mean Corpuscular Hemoglobin Concent 31.6 L, Red Cell Distribution Width 13.1, Neutrophils (%) (Auto) 81.5 H, Lymphocytes (%) (Auto) 10.5 L, Monocytes (%) (Auto) 5.9 H, Eosinophils (%) (Auto) 0.8, Basophils (%) ( Auto) 0.1, Neutrophils # (Auto) 5.3, Lymphocytes # (Auto) 0.8 L, Monocytes # ( Auto) 0.4, Eosinophils # (Auto) 0.1, Basophils # (Auto) 0.0 Home Medications Scheduled Ascorbic Acid (Ascorbic Acid) 500 Mg Tab 500 MG PO QHS Aspirin (Aspirin) 325 Mg Tab 325 MG PO QHS Calcium (Calcium) 500 Mg Tab 500 MG PO QHS Magnesium Oxide (Magnesium) 250 Mg Tab 250 MG PO QHS Vitamin A Acetate (Vitamin A) Unknown Strength Tab Unknown Dose PO DAILY Vitamin D (Vitamin D) 1,000 Unit Cap 1,000 UNIT PO QHS Scheduled PRN Acetaminophen (APAP Extra Strength) 500 Mg Tab 1,000 MG PO PRN PRN PRN PAIN Allergies Coded Allergies: No Known Allergies (Verified Allergy, Unknown, 04/08/12) MAGALYS RIVERA MD Apr 20, 2016 16:09
[2016-04-20] MEDS ORDERED: hydrALAZINE INJ 20 MG/ML VIAL IV PRN (16:15)
[2016-04-20] MEDS: ATORVASTATIN 20 MG TAB PO SCH (18:23)
[2016-04-20] MEDS: CLOPIDOGREL 75 MG TAB PO SCH (18:24)
[2016-04-20] MEDS: ASCORBIC ACID 500 MG TAB PO SCH (20:30)
[2016-04-21] VITALS (12 sets, daily range): BP systolic 120–164; BP diastolic 58–88; O2SAT 92–96
[2016-04-21] MEDS ORDERED: SLF 3 ML SYR IV PRN (00:45)
[2016-04-21 03:32] LABS: CONTROL LINE INT CTR LINE PRESENT; METHADONE URINE NEGATIVE (NEGATIVE); TRICYCLIC ANTIDEPRESS URINE NEGATIVE (NEGATIVE)
[2016-04-21] MEDS: SLF 3 ML SYR IV SCH ×3 (05:58→20:24)
[2016-04-21 08:49] LABS: MEAN CORPUSCULAR HGB CONC 31.4 g/dl (32.0-36.5); MEAN CORPUSCULAR VOLUME 92.2 fl (80.0-96.0); RED CELL DISTRIBUTION WIDTH 13.3 % (11.5-14.5); WHITE BLOOD COUNT 5.2 K/mm3 (4.0-10.0)
[2016-04-21 09:03] LABS: ALBUMIN 3.6 GM/DL (3.2-5.2); ALBUMIN/GLOBULIN RATIO 1.06 (1.00-1.93); ALKALINE PHOSPHATASE 82 U/L (45-117); ALT/SGPT 16 U/L (12-78); ANION GAP 11 MEQ/L (8-16); AST/SGOT 25 U/L (15-37); BILIRUBIN,TOTAL 0.5 MG/DL (0.2-1.0); BLOOD UREA NITROGEN 22 MG/DL (7-18); CARBON DIOXIDE LEVEL 25 MEQ/L (21-32); CHLORIDE LEVEL 108 MEQ/L (98-107); GLOMERULAR FILTRATION RATE > 60.0 (>39); GLUCOSE, FASTING 86 MG/DL (83-110); POTASSIUM SERUM 3.7 MEQ/L (3.5-5.1); SODIUM LEVEL 144 MEQ/L (136-145)
[2016-04-21] MEDS: CLOPIDOGREL 75 MG TAB PO SCH (09:14)
[2016-04-21] MEDS: ATORVASTATIN 20 MG TAB PO SCH (09:14)
[2016-04-21 09:15] LABS: CALCIUM LEVEL 8.9 MG/DL (8.8-10.2)
[2016-04-21] MEDS: PANTOPRAZOLE 40MG TAB (PROTONIX) PO SCH (15:11)
--- NOTE | 2016-04-21 15:26 | IPNPDOC ---
Text Note Date of Service The patient was seen on 04/21/16. NOTE Subjective: Pt denies any complaints. No CP/SOB/Palpitations. No MCCALL/Weakness. Objective: PHYSICAL EXAMINATION: General: No acute distress, laying comfortably in bed. HEENT: Moist mucous membranes. Neck: No JVD or lymphadenopathy Cardiac: RRR, No murmurs Pulm: Clear to auscultation b/l. No wheezing, rhonchi Abd: NT/ND + BS Ext: No edema or cyanosis Neuro: Strength 5/5 BUE and BLE. CN 2-12 intact. 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 Negative pronator drift. Negative Babinki. Sensation to fine touch intact. NIH 0. LABORATORY DATA: See below. IMAGING: CTA of the neck 04/20/16 IMPRESSION: 1. Moderate stenosis of 60% of the right internal carotid artery at its origin. 2. Severe stenosis of 75% of the left internal carotid artery at its origin. CTA head 04/20/16 IMPRESSION: 1. There is no aneurysm or arteriovenous malformation. 2. Atherosclerotic disease as described above. 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 No evidence for acute intracranial pathology or trauma/injury. Chest x-ray 04/20/16 Impression: Chronic stable changes. No acute cardiopulmonary process. MICROBIOLOGY: Please see below. ASSESSMENT/PLAN: 1. TIA- patient with left-sided hemiparesis that has resolved by the time the patient presented to the ED. Unable to obtain MRI given PPM. CTA of the head and neck (see above). CT of the head without contrast notable for prior strokes. 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 Patient had been on aspirin 325 daily, and the daughter states she gives it to her daily. We 'll start atorvastatin. Change aspirin to Plavix. Neuro checks. PT/OT/ST. 2. Altered mental status- questionable whether patient has baseline dementia. TSH, B12, ammonia level within normal limits. Electrolytes within normal limits. No new medications have been started. Daughter states she may have trouble taking care of her home however will continue to try. We'll have PFS onboard. 3. Carotid stenosis- patient has refused aggressive therapy in the past. Given the findings of severe stenosis within the left ICA, we will adjust these findings with the daughter and the patient. 4. Elevated blood pressure - we'll maintain systolic blood pressure between 140- 180 over the next 24 hours. 5. History of third-degree AV block status post PPM DVT prophylaxis- enoxaparin. Pending PT eval. Plan to d/c in the next 24 hours. Daughter (Jia) phone number is [phone]. VS,Fishbone, I+O VS, Fishbone, I+O Laboratory Tests 04/21/16 04:44 Red Blood Count 3.60 L, Mean Corpuscular Volume 92.2, Mean Corpuscular Hemoglobin 29.0, Mean Corpuscular Hemoglobin Concent 31.4 L, Red Cell Distribution Width 13.3 04/21/16 04:45 Calcium Level 8.9, Aspartate Amino Transf (AST/SGOT) 25, Alanine Aminotransferase (ALT/SGPT) 16, Total Creatine Kinase 199 H, Alkaline Phosphatase 82, Total Bilirubin 0.5, Total Protein 7.0, Albumin 3.6 Vital Signs Date Time Temp Pulse Resp B/P Pulse Ox O2 Delivery O2 Flow Rate FiO2 04/21/16 15:11 88 164/88 04/21/16 08:00 96.7 18 98 Room Air I&O- Last 24 Hours up to 6 AM 04/21/16 06:00 Intake Total 0 ml Output Total 400 ml Balance -400 ml MAGALYS BROOKS MD Apr 21, 2016 15:26
[2016-04-21] MEDS: risperiDONE 0.25 MG TAB PO SCH (18:54)
[2016-04-21] MEDS: ASCORBIC ACID 500 MG TAB PO SCH (20:23)
[2016-04-22 05:06] VITALS: BP 150/84
[2016-04-22 05:38] LABS: MEAN CORPUSCULAR HEMOGLOBIN 29.4 pg (27.0-33.0); MEAN CORPUSCULAR HGB CONC 32.4 g/dl (32.0-36.5); MEAN CORPUSCULAR VOLUME 90.7 fl (80.0-96.0); RED CELL DISTRIBUTION WIDTH 13.3 % (11.5-14.5); WHITE BLOOD COUNT 4.7 K/mm3 (4.0-10.0)
[2016-04-22 05:58] LABS: ALBUMIN 3.4 GM/DL (3.2-5.2); ALBUMIN/GLOBULIN RATIO 1.03 (1.00-1.93); ALKALINE PHOSPHATASE 83 U/L (45-117); ALT/SGPT 16 U/L (12-78); ANION GAP 9 MEQ/L (8-16); AST/SGOT 21 U/L (15-37); BILIRUBIN,TOTAL 0.5 MG/DL (0.2-1.0); BLOOD UREA NITROGEN 18 MG/DL (7-18); CALCIUM LEVEL 8.5 MG/DL (8.8-10.2); CARBON DIOXIDE LEVEL 26 MEQ/L (21-32); CHLORIDE LEVEL 108 MEQ/L (98-107); CREATININE FOR GFR 0.75 MG/DL (0.55-1.02); GLOMERULAR FILTRATION RATE > 60.0 (>39); GLUCOSE, FASTING 105 MG/DL (83-110); POTASSIUM SERUM 3.6 MEQ/L (3.5-5.1); SODIUM LEVEL 143 MEQ/L (136-145); TOTAL PROTEIN 6.7 GM/DL (6.4-8.2)
[2016-04-22] MEDS: SLF 3 ML SYR IV SCH ×3 (06:21→20:03)
[2016-04-22 07:15] VITALS: BP 168/97
[2016-04-22] MEDS ORDERED: INFLUENZA VIRUS VACCINE HIGH DOSE 0.5 ML SYRINGE (90662) IM SCH (09:00)
[2016-04-22] MEDS: CLOPIDOGREL 75 MG TAB PO SCH (09:38)
[2016-04-22] MEDS: risperiDONE 0.25 MG TAB PO SCH (09:38)
[2016-04-22] MEDS: ATORVASTATIN 20 MG TAB PO SCH (09:38)
[2016-04-22] MEDS: PANTOPRAZOLE 40MG TAB (PROTONIX) PO SCH (09:38)
[2016-04-22 12:03] VITALS: BP 116/56
--- NOTE | 2016-04-22 15:35 | IPNPDOC ---
Text Note Date of Service The patient was seen on 04/22/16. NOTE Subjective: Pt denies any complaints. No CP/SOB/Palpitations. No MCCALL/Weakness. Objective: PHYSICAL EXAMINATION: General: No acute distress, laying comfortably in bed. HEENT: Moist mucous membranes. Neck: No JVD or lymphadenopathy Cardiac: RRR, No murmurs Pulm: Clear to auscultation b/l. No wheezing, rhonchi Abd: NT/ND + BS Ext: No edema or cyanosis Neuro: Strength 5/5 BUE and BLE. CN 2-12 intact. 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 Negative pronator drift. Negative Babinki. Sensation to fine touch intact. NIH 0. LABORATORY DATA: See below. IMAGING: CTA of the neck 04/20/16 IMPRESSION: 1. Moderate stenosis of 60% of the right internal carotid artery at its origin. 2. Severe stenosis of 75% of the left internal carotid artery at its origin. CTA head 04/20/16 IMPRESSION: 1. There is no aneurysm or arteriovenous malformation. 2. Atherosclerotic disease as described above. 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 No evidence for acute intracranial pathology or trauma/injury. Chest x-ray 04/20/16 Impression: Chronic stable changes. No acute cardiopulmonary process. MICROBIOLOGY: Please see below. ASSESSMENT/PLAN: 1. TIA- patient with left-sided hemiparesis that has resolved by the time the patient presented to the ED. Unable to obtain MRI given PPM. CTA of the head and neck (see above). CT of the head without contrast notable for prior strokes. 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 Patient had been on aspirin 325 daily, and the daughter states she gives it to her daily. Cont atorvastatin. Cont Plavix. Neuro checks. PT/OT/ST. 2. Altered mental status-Pt likely has baseline dementia. TSH, B12, ammonia level within normal limits. Electrolytes within normal limits. No new medications have been started. Daughter states pt needs placement as she has trouble taking care of her home, as she is unable to provide 24 hr care. PFS onboard. 3. Carotid stenosis- patient has refused aggressive therapy in the past. Given the findings of severe stenosis within the left ICA, I have discussed these findings with the daughter, who believes her mother would not want surgery. 4. Elevated blood pressure - Started on Amlodipine. BP improved. 5. History of third-degree AV block status post PPM DVT prophylaxis- enoxaparin. Pending placement. Daughter (Jia) phone number is [phone]. VS,Fishbone, I+O VS, Fishbone, I+O Laboratory Tests 04/22/16 05:25 Calcium Level 8.5 L, Aspartate Amino Transf (AST/SGOT) 21, Alanine Aminotransferase (ALT/SGPT) 16, Alkaline Phosphatase 83, Total Bilirubin 0.5, Total Protein 6.7, Albumin 3.4, Red Blood Count 3.66 L, Mean Corpuscular Volume 90.7, Mean Corpuscular Hemoglobin 29.4, Mean Corpuscular Hemoglobin Concent 32.4 , Red Cell Distribution Width 13.3 Vital Signs Date Time Temp Pulse Resp B/P Pulse Ox O2 Delivery O2 Flow Rate FiO2 04/22/16 12:03 97.3 89 20 116/56 96 Room Air I&O- Last 24 Hours up to 6 AM 04/22/16 06:00 Intake Total 750 ml Output Total 875 ml Balance -125 ml MAGALYS BROOKS MD Apr 22, 2016 15:35
[2016-04-22 15:45] VITALS: BP 143/67
--- NOTE | 2016-04-22 17:00 | EDDOCDS ---
Nurse's Notes [facility] Name: Sukh Wright Age: 80 yrs Sex: Female : 1935 Arrival Date: 04/20/2016 Time: 07:26 Bed 21 Private MD: Daysi Chatman A Diagnosis: Transient cerebral ischemic attack, unspecified Presentation: 04/20 07:29 Presenting complaint: EMS states: were called to residence for possible stroke by 4 family. Allegedly patient was last seen well yesterday at noon. EMS found left leg to be weak. ." EMS states that patient was answering questions well and then was "seeing snow and krista of hay in the ambulance". Suicide/Homicide risk assessment- the patient denies having any suicidal and/or homicidal ideations and does not present with any other emotional, behavioral or mental health complaints. Status: Patient is not a rehabilitation services aide or dependent. Transition of care: patient was not received from another setting of care. Care prior to arrival: See EMS report. Saline lock initiated. Glucose check. 126 mg/dl. 07:29 Acuity: TALI Level 2 [facility] 07:29 Method Of Arrival: Ambulance [facility] 07:30 Adult Sepsis Screening: Patient has new or worsening altered mentation (1 point). [facility] Patient's respiratory rate is less than 22. Systolic blood pressure is greater than 100. Patient has a qSOFA score of 1- Negative Sepsis Screen. Historical: - Allergies: no known allergies; - Home Meds: 1. aspirin 325 mg Oral TbEC 1 tab once daily (Last dose: 04/19/2016 19:00) 2. Tylenol 325 mg Oral tab 2 tabs as needed for heachache (Last dose: 04/18/2016) - PMHx: blind; Hypertension; - PSHx: Pacemaker Insertion; - Family history: Not pertinent. - Social history: Smoking status: Patient states was never smoker of tobacco. No barriers to communication noted, The patient speaks fluent Ecuadorean. - : The pt / caregiver states he / she is not on anticoagulants. Home medication list is obtained from family members. - Exposure Risk Screening:: None identified. Screenin:44 Screening information is obtained from the patient, family members. Fall risk: At risk ja5 due to Blindness. Assistance ADL's: Requires assistance with meal preparation, this assistance is provided by family members, bathing, assistance is provided by family members, dressing, assistance is provided by family members, housework, assistance is provided by family members, medication administration, assistance is provided by family members. Abuse/DV Screen: The patient / caregiver reports he/she is: not in a situation that causes fear, pain or injury. Nutritional screening: On no prescribed diet. Advance Directives: Currently, there is a health care proxy, Alysia Rodriguez, daughter. There is an active DNR order and the pt has a copy here at this time. There is a living will, and a copy is available at this time. There is an active Power of Yarn Cleaner, Alysia Rodriguez, daughter. home support is adequate. Assessment: 07:40 Neurological: Level of Consciousness is awake, alert, Oriented to person, place, time, ja5 Motorcycle Repairer are equal bilaterally Moves all extremities. Speech is normal, Facial symmetry appears normal. 07:58 General: Appears in no apparent distress, comfortable, Behavior is appropriate for age, ja5 cooperative. Pain: Denies pain. Neurological: Level of Consciousness is awake, alert, Oriented to person, place, time, Motorcycle Repairer are equal bilaterally Moves all extremities. Speech is normal, Facial symmetry appears normal. Cardiovascular: Capillary refill < 3 seconds Heart tones S1 S2 present. Respiratory: Airway is patent Respiratory effort is even, unlabored, Breath sounds are clear bilaterally. Derm: Skin is pink, warm & dry. Musculoskeletal: Circulation, motion, and sensation intact. 08:32 General: Patient is laying in stretcher asleep, arouses easily and is alert and ja5 oriented. Patient denies dizziness, numbness, her speech is clear, she has had intermittent moments of confusion/hallucinations of which the provider is aware. At 0820 patient stated she sees a leopard in the room and asked what I was wearing on my head. Respirations are even and unlabored, color is pink. SR with PVS showing on vehicle monitor technician. Bed in low position, call warren in reach, daughter is at bedside. . 09:55 General: Patient laying supine in stretcher, denies dizziness is not currently having ja5 any confusion. Respirations are even and unlabored, color is pink, O2 sat 96% on RA. Daughter is currently at bedside, patient states she has no needs at this time.. 10:42 General: Patient is awake, alert and oriented, denies dizziness, speech is clear, she ja5 moves all extremities. Respirations are even and unlabored, color is pink, SR on vehicle monitor technician, as she lays in stretcher with her daughter at the bedside. Blood pressure has been consistently elevated, see vital signs, provider has been made aware of these trends.. 12:34 General: Patient back from her CT scan which she tolerated well. She is back in room ja5 laying in her stretcher, denies dizziness, tingling, numbness, her speech is clear and moves all extremities. SR on vehicle monitor technician, respirations are even and unlabored, color is pink, O\\T\\ sat reading 97% on room air. Call warren in reach, bed in low position.. 14:29 General: Pt lying on stretcher. Asking, "what is the breed of that dog over there?" Pt goldy is aware that she is in the hospital. Pt has pulled out right antecubital saline lock. No bleeding from site. Left forearm saline lock wrapped with Conform dressing. Vital Signs: 07:38 BP 198 / 95; Pulse 90; Resp 18; Temp 97.8(O); Pulse Ox 97% on R/A; Pain 0/10; nb2 07:48 Weight 70.03 kg; Height 5 ft. 3 in. (160.02 cm); ja5 08:18 BP 192 / 86 (auto/); ja5 08:18 Pulse 80 MON; Pulse Ox 94% ; ja5 09:40 Pulse 82 MON; Pulse Ox 96% ; ja5 09:41 BP 198 / 84 (auto/); ja5 09:52 BP 186 / 83 (auto/); ja5 09:54 Pulse 82 MON; Pulse Ox 95% ; ja5 09:56 BP 188 / 83 (auto/); ja5 09:56 Pulse 82 MON; Pulse Ox 96% ; ja5 10:11 BP 188 / 84 (auto/); ja5 10:11 Pulse 82 MON; Pulse Ox 96% ; ja5 10:25 Pulse 78 MON; Pulse Ox 95% ; ja5 10:26 BP 181 / 84 (auto/); ja5 10:40 Pulse 78 MON; Pulse Ox 93% ; ja5 10:41 BP 182 / 81 (auto/); ja5 10:55 Pulse 80 MON; Pulse Ox 95% ; ja5 10:56 BP 169 / 72 (auto/); ja5 11:08 Pulse 78 MON; Pulse Ox 94% ; ja5 11:11 BP 167 / 107 (auto/); ja5 11:25 Pulse 78 MON; Pulse Ox 96% ; ja5 11:26 BP 166 / 70 (auto/); ja5 11:36 Pulse Ox 97% ; ja5 11:40 Pulse 78 MON; ja5 11:41 BP 173 / 73 (auto/); ja5 11:49 Pulse 78 MON; Pulse Ox 95% ; ja5 11:56 BP 163 / 72 (auto/); ja5 12:10 Pulse 74 MON; ja5 12:11 BP 152 / 72 (auto/); ja5 12:25 Pulse 82 MON; ja5 12:26 BP 174 / 79 (auto/); ja5 12:33 BP 174 / 79; Pulse 94; Resp 20; Temp 97.9(O); Pulse Ox 97% on R/A; Pain 0/10; ja5 12:39 Pulse 88 MON; Pulse Ox 96% ; ja5 12:41 BP 161 / 75 (auto/); ja5 12:55 Pulse 74 MON; Pulse Ox 94% ; ja5 12:56 BP 172 / 77 (auto/); ja5 13:11 BP 166 / 79 (auto/); ja5 13:15 Pulse 74 MON; Pulse Ox 92% ; ja5 13:25 Pulse 78 MON; Pulse Ox 95% ; ja5 13:26 BP 171 / 79 (auto/); ja5 14:25 Pulse 76 MON; Pulse Ox 95% ; ja5 14:26 BP 222 / 133 (auto/); ja5 14:27 Pulse 82 MON; Pulse Ox 95% ; ja5 14:29 BP 221 / 90 (auto/); ja5 14:33 Pulse 74 MON; Pulse Ox 96% ; ja5 14:34 BP 205 / 88 (auto/); ja5 14:59 Pulse 80 MON; Pulse Ox 95% ; ja5 15:00 BP 208 / 93 (auto/); ja5 07:48 Body Mass Index 27.35 (70.03 kg, 160.02 cm) ja5 Vitals: 07:38 Log In Time N/A - ambulance arrival. nb2 ED Course: 07:25 The patient / caregiver is instructed regarding the plan of care and ED course. jc4 07:28 Patient visited by Lavinia Ahn, Server. lbd 07:28 Patient moved to Waiting lbd 07:29 Daysi Chatman is Private Physician. lbd 07:29 Rola Brown RN is Primary Nurse. lbd 07:29 [place], BENOIT is Primary Nurse. lbd 07:29 Laura Encinas,BENOIT is Primary Nurse. lbd 07:29 Patient moved to 4 lbd 07:34 Triage Initiated jc4 07:35 Mary Bonilla MD is Attending Physician. sd1 07:35 Patient visited by Mary Bonilla MD. sd1 07:39 Patient visited by Amber Salazar. nb2 07:44 EKG done. (by ED staff). Reviewed by Mary Bonilla MD. jrd 07:57 Basic Metabolic Profile Sent. ja5 07:57 CBC with Diff Sent. ja5 07:57 Partial Thromboplastin Time Sent. ja5 07:57 Prothrombin Time Profile\\E\\INR Sent. ja5 07:57 Type & Screen Sent. ja5 08:01 Maintain field IV. Dressing intact. Site clean & dry. Gauge & site: 20g left forearm. ja5 08:02 Inserted saline lock: 20 gauge in right antecubital area. ja5 08:03 Chest, 1 View Returned. EDMS 08:05 Primary Nurse role handed off by Rola Brown RN mlb1 08:44 Patient visited by Laura Encinas RN. ja5 08:44 CT Head Without Contrast Returned. EDMS 09:34 [facility] Payment Agreement was scanned into [employer] and attached to record. lg 09:55 Patient visited by Laura Encinas RN. ja5 09:59 Venous Blood Gas (large pea green tube on ice) Sent. jc4 09:59 Ammonia (Little Green Tube on Ice, Not Pea Green) Sent. jc4 10:44 Patient visited by Laura Encinas RN. ja5 10:46 Alfredo Rivera is Hospitalizing Provider. sd1 10:49 ELECTROCARDIOGRAM ADULT Returned. EDMS 12:18 Patient moved to Admit Hold kpj 13:31 Patient visited by Lorie Segundo. cmb 13:32 Patient visited by Lorie Segundo. cmb 13:32 Verbal reassurance given. cmb 14:24 Patient visited by Lorie Segundo. cmb 15:13 Patient moved to 21 [facility] 15:40 CT ANGIO HEAD Returned. EDMS 15:40 CT ANGIO NECK Returned. EDMS 04/21 20:24 T-Sheet-- Draft Copy was scanned into [employer] and attached to record. klr Administered Medications: 04/20 10:41 Drug: Aspirin 324 mg [aspirin 81 mg chewable tablet (4 tabs)] Route: PO; ja5 Order Results: Lab Order: Basic Metabolic Profile; [facility] 04/20/16 07:55 Test: GLUCOSE, FASTING; Value: 108; Range: 83-110; Units: MG/DL; Status: F Test: BLOOD UREA NITROGEN; Value: 24; Range: 7-18; Abnormal: Above high normal; Units: MG/DL; Status: F Test: CREATININE FOR GFR; Value: 0.95; Range: 0.55-1.02; Units: MG/DL; Status: F Test: GLOMERULAR FILTRATION RATE; Value: > 60.0; Range: >39; Status: F Test: SODIUM LEVEL; Value: 141; Range: 136-145; Units: MEQ/L; Status: F Test: POTASSIUM SERUM; Value: 3.8; Range: 3.5-5.1; Units: MEQ/L; Status: F Test: CHLORIDE LEVEL; Value: 105; Range: 98-107; Units: MEQ/L; Status: F Test: CARBON DIOXIDE LEVEL; Value: 30; Range: 21-32; Units: MEQ/L; Status: F Test: ANION GAP; Value: 6; Range: 8-16; Abnormal: Below low normal; Units: MEQ/L; Status: F Test: CALCIUM LEVEL; Value: 10.4; Range: 8.8-10.2; Abnormal: Above high normal; Units: MG/DL; Status: F Test Note: ; Units are mL/min/1.73 m2 Chronic Kidney Disease Staging per NKF: Stage I & II GFR >=60 Normal to Mildly Decreased Stage III GFR 30-59 Moderately Decreased Stage IV GFR 15-29 Severely Decreased Stage V GFR <15 Very Little GFR Left ESRD GFR <15 on MEDICAL ASSISTANT SUPERVISOR Lab Order: CBC with Diff; SPEC' 04/20/16 07:56 Test: WHITE BLOOD COUNT; Value: 6.5; Range: 4.0-10.0; Units: K/mm3; Status: F Test: RED BLOOD COUNT; Value: 3.84; Range: 4.00-5.40; Abnormal: Below low normal; Units: M/mm3; Status: F Test: HEMOGLOBIN; Value: 11.1; Range: 12.0-16.0; Abnormal: Below low normal; Units: g/dl; Status: F Test: HEMATOCRIT; Value: 35.2; Range: 36.0-47.0; Abnormal: Below low normal; Units: %; Status: F Test: MEAN CORPUSCULAR VOLUME; Value: 91.5; Range: 80.0-96.0; Units: fl; Status: F Test: MEAN CORPUSCULAR HEMOGLOBIN; Value: 28.9; Range: 27.0-33.0; Units: pg; Status: F Test: MEAN CORPUSCULAR HGB CONC; Value: 31.6; Range: 32.0-36.5; Abnormal: Below low normal; Units: g/dl; Status: F Test: RED CELL DISTRIBUTION WIDTH; Value: 13.1; Range: 11.5-14.5; Units: %; Status: F Test: PLATELET COUNT, AUTOMATED; Value: 287; Range: 150-450; Units: k/mm3; Status: F Test: NEUTROPHILS %; Value: 81.5; Range: 36.0-66.0; Abnormal: Above high normal; Units: %; Status: F Test: LYMPH %; Value: 10.5; Range: 24.0-44.0; Abnormal: Below low normal; Units: %; Status: F Test: MONO %; Value: 5.9; Range: 0.0-5.0; Abnormal: Above high normal; Units: %; Status: F Test: EOS %; Value: 0.8; Range: 0.0-3.0; Units: %; Status: F Test: BASO %; Value: 0.1; Range: 0.0-1.0; Units: %; Status: F Test: LARGE UNSTAINED CELL %; Value: 1.1; Range: 0.0-4.0; Units: %; Status: F Test: NEUTROPHILS #; Value: 5.3; Range: 1.8-7.7; Units: K/mm3; Status: F Test: LYMPH #; Value: 0.8; Range: 1.5-4.5; Abnormal: Below low normal; Units: K/mm3; Status: F Test: MONO #; Value: 0.4; Range: 0.0-0.8; Units: K/mm3; Status: F Test: EOS #; Value: 0.1; Range: 0.0-0.50; Units: K/mm3; Status: F Test: BASO #; Value: 0.0; Range: 0.0-0.2; Units: K/mm3; Status: F Test: LARGE UNSTAINED CELL #; Value: 0.1; Range: 0.0-0.4; Units: K/mm3; Status: F Lab Order: Partial Thromboplastin Time; 04/20/16 07:55 Test: PARTIAL THROMBOPLASTIN TIME; Value: 32.6; Range: 26.6-37.1; Units: SECONDS; Status: F Lab Order: Prothrombin Time Profile\\E\\INR; 04/20/16 07:55 Test: PROTHROMBIN TIME; Value: 13.7; Range: 12.3-14.5; Units: SECONDS; Status: F Test: INR; Value: 1.04; Status: F Test Note: ; THERAPUTIC HUMAN INR VALUES INDICATIONS NORMAL RANGES PROPHYLAXIS/TREATMENT OF: VENOUS THROMBOSIS 2.0-3.0 PULMONARY EMBOLISM 2.0-3.0 PREVENTION OF SYSTEMIC EMBOLISM FROM: TISSUE HEART VALVES 2.0-3.0 ACUTE MYOCARDIAL INFARCTION 2.0-3.0 VALVULAR HEART DISEASE 2.0-3.0 ATRIAL FIBRILLATION 2.0-3.0 MECHANICAL VALVES(HIGH RISK) 2.5-3.5 RECURRENT MYOCARDIAL INFARCTION 2.5-3.5 Lab Order: Type & Screen; 04/20/16 07:56 Test: BLOOD TYPE; Value: B POS; Status: F Test: AB SCREEN (INDIRECT MOO)VIS; Value: NEGATIVE; Status: F Lab Order: Ammonia (Little Green Tube on Ice, Not Pea Green); 04/20/16 09:36 Test: AMMONIA; Value: < 10; Range: <32; Units: uMOL/L; Status: F Lab Order: Venous Blood Gas (large pea green tube on ice); [facility] 04/20/16 09:36 Test: VENOUS PH; Value: 7.357; Range: 7.330-7.430; Units: UNITS; Status: F Test: VENOUS PARTIAL PRESSURE CO2; Value: 48.0; Range: 38.0-50.0; Units: mmHg; Status: F Test: VENOUS PARTIAL PRESSURE O2; Value: 44.0; Range: 30.0-50.0; Units: mmHg; Status: F Test: VENOUS TOTAL CO2; Value: 27.8; Range: 24.0-28.0; Units: MEQ/L; Status: F Test: VENOUS HCO3; Value: 26.3; Range: 23.0-27.0; Units: MEQ/L; Status: F Test: VENOUS BASE EXCESS; Value: 0.4; Range: -2.0-2.0; Status: F Test: VENOUS STANDARD HCO3; Value: 24.4; Units: MEQ/L; Status: F Test: VENOUS O2 SATURATION; Value: 77.0; Range: 60.0-80.0; Units: %; Status: F Lab Order: CARDIAC INJURY PROFILE; [facility] 04/20/16 07:55 Test: CPK CREATINE PHOSPHOKINASE; Value: 188; Range: 26-192; Units: U/L; Status: F Test: CK-MB VALUE MASS; Value: 1.8; Range: 0.0-3.6; Units: NG/ML; Status: F Test: MB/CK RELATIVE INDEX; Value: 0.95; Range: < OR =4; Status: F Test Note: ; DIAGNOSIS CRITERIA MMB ng/ml Relative Index (RI) NON-AMI < or = 5 N/A DO ZONE > 5 < or = 4 AMI > 5 > 4 Lab Order: TROPONIN; [facility] 04/20/16 07:55 Test: TROPONIN I; Value: 0.02; Range: < 0.10; Units: NG/ML; Status: F Test Note: ; Troponin I Reference Interval for [employer] LOCI: 99th Percentile= 0.00-0.045 ng/ml Risk Stratification: <= 0.10 ng/ml Decreased Risk for Adverse Clinical Events. 0.10-1.50 ng/ml Increased Risk for Adverse Clinical Events. Evaluation of additional criterion and/or repeat testing in 2-6 hours is suggested to rule out myocardial damage. >= 1.50 ng/ml Indicative of Myocardial Injury. Lab Order: THYROID STIMULATING HORMONE; 04/20/16 07:55 Test: THYROID STIMULATING HORMONE; Value: 2.690; Range: 0.358-3.740; Units: uIU/ML; Status: F Lab Order: ACETAMINOPHEN LEVEL; 04/20/16 07:55 Test: ACETAMINOPHEN LEVEL; Value: < 2.0; Range: 10.0-30.0; Abnormal: Below low normal; Units: UG/ML; Status: F Lab Order: ETHYL ALCOHOL (ETHANOL); 04/20/16:55 Test: ETHYL ALCOHOL (ETHANOL); Value: < 0.003; Range: 0.000-0.010; Units: %; Status: F Lab Order: LIVER PROFILE; 04/20/16 07:55 Test: AST/SGOT; Value: 24; Range: 15-37; Units: U/L; Status: F Test: ALT/SGPT; Value: 16; Range: 12-78; Units: U/L; Status: F Test: ALKALINE PHOSPHATASE; Value: 93; Range: 45-117; Units: U/L; Status: F Test: BILIRUBIN,TOTAL; Value: 0.4; Range: 0.2-1.0; Units: MG/DL; Status: F Test: BILIRUBIN,DIRECT; Value: 0.1; Range: 0.0-0.2; Units: MG/DL; Status: F Test: TOTAL PROTEIN; Value: 7.9; Range: 6.4-8.2; Units: GM/DL; Status: F Test: ALBUMIN; Value: 3.9; Range: 3.2-5.2; Units: GM/DL; Status: F Test: ALBUMIN/GLOBULIN RATIO; Value: 0.98; Range: 1.00-1.93; Abnormal: Below low normal; Status: F Lab Order: SALICYLATE LEVEL; 04/20/16 07:55 Test: SALICYLATE LEVEL; Value: < 1.7; Range: 5.0-30.0; Abnormal: Below low normal; Units: MG/DL; Status: F Lab Order: VITAMIN B12 LEVEL; 22/17 07:55 Test: VITAMIN B12 LEVEL; Value: 1263; Range: 247-911; Abnormal: Above high normal; Units: PG/ML; Status: F Test Note: ; VITAMIN B12 NORMAL RANGE NORMAL 247 - 911 PG/ML INDETERMINATE 211 - 246 PG/ML DEFICIENT LESS THAN 211 PG/ML Lab Order: CARDIAC INJURY PROFILE; SPEC'M 04/20/16 11:44 Test: CPK CREATINE PHOSPHOKINASE; Value: 183; Range: 26-192; Units: U/L; Status: F Test: CK-MB VALUE MASS; Value: 1.8; Range: 0.0-3.6; Units: NG/ML; Status: F Test: MB/CK RELATIVE INDEX; Value: 0.98; Range: < OR =4; Status: F Test Note: ; DIAGNOSIS CRITERIA MMB ng/ml Relative Index (RI) NON-AMI < or = 5 N/A DO ZONE > 5 < or = 4 AMI > 5 > 4 Lab Order: TROPONIN; SPEC'M 04/20/16 11:44 Test: TROPONIN I; Value: 0.03; Range: < 0.10; Abnormal: Delta; Units: NG/ML; Status: F Test Note: ; Troponin I Reference Interval for [employer] LOCI: 99th Percentile= 0.00-0.045 ng/ml Risk Stratification: <= 0.10 ng/ml Decreased Risk for Adverse Clinical Events. 0.10-1.50 ng/ml Increased Risk for Adverse Clinical Events. Evaluation of additional criterion and/or repeat testing in 2-6 hours is suggested to rule out myocardial damage. >= 1.50 ng/ml Indicative of Myocardial Injury. Radiology Order: CT Head Without Contrast Test: CT Head Without Contrast REASON FOR EXAMINATION: left weak >4.5 hours; Clinical: Left-sided weakness .; ; Comparison: 06/22/2015 .; ; Findings:; Age related atrophy is appreciated. 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 The ventricles, sulci, and cisterns are; normal in position and appearance. Do-white differentiation is maintained. No; acute intracranial hemorrhage, mass/mass effect, pathology or trauma/injury. No; evidence for acute infarction. No extra-axial fluid collection. Calvarium is; intact. Paranasal sinuses and mastoid air cells are clear.; ; Impression:; Age related atrophy and microvascular ischemic changes including old right; frontal and left basal ganglia infarcts.; No evidence for acute intracranial pathology or trauma/injury.; ; ; Signed by; Kj De La Rosa MD 04/20/2016 08:16 A; Radiology Order: Chest, 1 View Test: Chest, 1 View REASON FOR EXAMINATION: weakness; Clinical: Weakness.; ; Comparison: 04/09/2012.; ; Findings:; Mediastinum and cardiac silhouette are stable. Lung leary demonstrate chronic; interstitial changes without acute consolidation, effusion, or pneumothorax.; Skeletal structures stable.; ; Impression:; Chronic stable changes. No acute cardiopulmonary process.; ; ; Signed by; Kj De La Rosa MD 04/20/2016 07:53 A; Radiology Order: ELECTROCARDIOGRAM ADULT Test: ELECTROCARDIOGRAM ADULT REASON FOR EXAMINATION: weakness; Stationary ECG Study; [facility] ED; ; Test Date: 2016-04-20; [facility] Department:; Room: -; Gender: F Jewelry Sorter: naif; : 1935 Requested By: Mary Bonilla; Order Number: [id number] Reading MD: Mary Bonilla; Measurements; Intervals [place]; Rate: 84 P: 46; NM: 151 QRS: -59; QRSD: 167 T: 99; QT: 431; QTc: 512; Interpretive Statements; ELECTRONIC VENTRICULAR PACEMAKER; ABNORMAL RHYTHM ECG; SINUS RHYTHM; SIMILAR 06/22/15; Electronically Signed On 04-20-2016 10:06:25 EST by Mary Bonilla; Radiology Order: CT ANGIO HEAD Test: CT ANGIO HEAD REASON FOR EXAMINATION: tia; unable to obatin mri; CT ANGIO HEAD:; ; HISTORY: TIAs.; ; CONTRAST: Isovue-370, 75 mL.; ; There is no aneurysm or arteriovenous malformation. Calcified atherosclerotic; plaques are present in the cavernous and supraclinoid internal carotid arteries.; These produce at least mild stenosis. Calcified atherosclerotic plaques are; present in the distal vertebral arteries at the craniovertebral junction. These; produce at least moderate stenosis. Major intracranial vessels are patent. The; vertebral arteries are equal in size.; ; IMPRESSION:; ; 1. There is no aneurysm or arteriovenous malformation.; ; 2. Atherosclerotic disease as described above.; ; ; Signed by; Elijah Hebert MD 04/20/2016 03:19 P; Radiology Order: CT ANGIO NECK Test: CT ANGIO NECK REASON FOR EXAMINATION: tia; unable to obatin mri; CT ANGIO NECK:; ; HISTORY: TIAs.; ; CONTRAST: Isovue-370, 75 mL.; ; Calcified atherosclerotic plaques are present at the distal right common carotid; artery and origins of the right external and internal carotid arteries. There is; moderate stenosis of 60% of the right internal carotid artery at its origin.; There is mild stenosis of 20% of the right external carotid artery at its origin.; Calcified atherosclerotic plaques are present at the distal left common carotid; artery and origins of the left external and internal carotid arteries. There is; severe stenosis of 75% of the left internal carotid artery at its origin. There; is severe stenosis of 70% of the left external carotid artery at its origin.; Small calcified atherosclerotic plaques are present in the common carotid; arteries in the lower neck. There is no significant stenosis. Calcified; atherosclerotic plaques are present in the vertebral arteries at the; craniovertebral junction. The plaques produce at least moderate stenosis.; Calcified atherosclerotic plaques are present at the origins of the great vessels; and vertebral arteries. There is no significant stenosis. The left vertebral; artery arises from the aortic arch.; ; IMPRESSION:; ; 1. Moderate stenosis of 60% of the right internal carotid artery at its origin.; ; 2. 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 sd1 15:58 Patient left the ED. hs1 Signatures: Dispatcher [employer] EDMS Mary Bonilla MD MD sd1 Lavinia Ahn, Server Unit lbd Daysi Albarado RN RN kpj Peters, Mary, RN RN mcp Ganter, LoriLee, Fidencio Butler lg RN RN mlb1 Lizy Feliz RN RN hs1 [place] RN RN jc4 Lorie Segundo Joseph, PCA PCA jrd Redder, Kathie klr Baart, Amber nb2 Laura EncinasRN RN ja5 Corrections: (The following items were deleted from the chart) 11:05 08:32 General: Patient is laying in stretcher asleep, arouses easily and is alert and ja5 oriented. Patient denies dizziness, numbness, her speech is clear, she has had intermittent moments of confusion/hallucinations. At 0820 patient stated she sees a leopard in the room and asked what I was wearing on my head. Respirations are even and unlabored, color is pink. SR with PVS showing on vehicle monitor technician. Bed in low position, call warren in reach, daughter is at bedside. . ja5 15:08 10:42 General: Patient is awake, alert and oriented, denies dizziness, speech is clear, ja5 she moves all extremities. Respirations are even and unlabored, color is pink, SR on vehicle monitor technician, as she lays in stretcher with her daughter at the bedside.. ja5 Chart Complete MTDD
--- NOTE | 2016-04-22 17:00 | EDDOCDS ---
Physician Documentation [facility] Name: Sukh Wright Age: 80 yrs Sex: Female : 1935 Arrival Date: 04/20/2016 Time: 07:26 Bed 21 Private MD: Daysi Chatman A Disposition: 04/20/16 10:46 Hospitalization ordered by Alfredo Rivera for Inpatient Admission. Preliminary diagnosis is Transient cerebral ischemic attack, unspecified. - Bed requested for PCU. - Status is Inpatient Admission. hs1 - Condition is Stable. - Problem is new. - Symptoms are resolved. Historical: - Allergies: no known allergies; - Home Meds: 1. aspirin 325 mg Oral TbEC 1 tab once daily (Last dose: 04/19/2016 19:00) 2. Tylenol 325 mg Oral tab 2 tabs as needed for heachache (Last dose: 04/18/2016) - PMHx: blind; Hypertension; - PSHx: Pacemaker Insertion; - Family history: Not pertinent. - Social history: Smoking status: Patient states was never smoker of tobacco. No barriers to communication noted, The patient speaks fluent Cymro. - : The pt / caregiver states he / she is not on anticoagulants. Home medication list is obtained from family members. - Exposure Risk Screening:: None identified. Vital Signs: 04/20 07:38 BP 198 / 95; Pulse 90; Resp 18; Temp 97.8(O); Pulse Ox 97% on R/A; Pain 0/10; nb2 07:48 Weight 70.03 kg / 154.39 lbs; Height 5 ft. 3 in. (160.02 cm); ja5 08:18 BP 192 / 86 (auto/); ja5 08:18 Pulse 80 MON; Pulse Ox 94% ; ja5 09:40 Pulse 82 MON; Pulse Ox 96% ; ja5 09:41 BP 198 / 84 (auto/); ja5 09:52 BP 186 / 83 (auto/); ja5 09:54 Pulse 82 MON; Pulse Ox 95% ; ja5 09:56 BP 188 / 83 (auto/); ja5 09:56 Pulse 82 MON; Pulse Ox 96% ; ja5 10:11 BP 188 / 84 (auto/); ja5 10:11 Pulse 82 MON; Pulse Ox 96% ; ja5 10:25 Pulse 78 MON; Pulse Ox 95% ; ja5 10:26 BP 181 / 84 (auto/); ja5 10:40 Pulse 78 MON; Pulse Ox 93% ; ja5 10:41 BP 182 / 81 (auto/); ja5 10:55 Pulse 80 MON; Pulse Ox 95% ; ja5 10:56 BP 169 / 72 (auto/); ja5 11:08 Pulse 78 MON; Pulse Ox 94% ; ja5 11:11 BP 167 / 107 (auto/); ja5 11:25 Pulse 78 MON; Pulse Ox 96% ; ja5 11:26 BP 166 / 70 (auto/); ja5 11:36 Pulse Ox 97% ; ja5 11:40 Pulse 78 MON; ja5 11:41 BP 173 / 73 (auto/); ja5 11:49 Pulse 78 MON; Pulse Ox 95% ; ja5 11:56 BP 163 / 72 (auto/); ja5 12:10 Pulse 74 MON; ja5 12:11 BP 152 / 72 (auto/); ja5 12:25 Pulse 82 MON; ja5 12:26 BP 174 / 79 (auto/); ja5 12:33 BP 174 / 79; Pulse 94; Resp 20; Temp 97.9(O); Pulse Ox 97% on R/A; Pain 0/10; ja5 12:39 Pulse 88 MON; Pulse Ox 96% ; ja5 12:41 BP 161 / 75 (auto/); ja5 12:55 Pulse 74 MON; Pulse Ox 94% ; ja5 12:56 BP 172 / 77 (auto/); ja5 13:11 BP 166 / 79 (auto/); ja5 13:15 Pulse 74 MON; Pulse Ox 92% ; ja5 13:25 Pulse 78 MON; Pulse Ox 95% ; ja5 13:26 BP 171 / 79 (auto/); ja5 14:25 Pulse 76 MON; Pulse Ox 95% ; ja5 14:26 BP 222 / 133 (auto/); ja5 14:27 Pulse 82 MON; Pulse Ox 95% ; ja5 14:29 BP 221 / 90 (auto/); ja5 14:33 Pulse 74 MON; Pulse Ox 96% ; ja5 14:34 BP 205 / 88 (auto/); ja5 14:59 Pulse 80 MON; Pulse Ox 95% ; ja5 15:00 BP 208 / 93 (auto/); ja5 07:48 Body Mass Index 27.35 (70.03 kg, 160.02 cm) ja5 MDM: 07:36 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 sd1 07:36 IV Saline Lock ordered. sd1 07:36 Rhythm Strip to chart ordered. sd1 07:37 Basic Metabolic Profile Ordered. EDMS 07:37 CBC with Diff Ordered. EDMS 07:37 Partial Thromboplastin Time Ordered. EDMS 07:38 Prothrombin Time Profile\E\INR Ordered. EDMS 07:38 Chest, 1 View Ordered. EDMS 07:38 Type & Screen Ordered. EDMS 07:38 CT Head Without Contrast Ordered. EDMS 07:38 ECG WITH READING ER PHYS+CARDIAG ordered. EDMS 07:48 BED REQUEST+ADM ordered. EDMS 09:05 Basic Metabolic Profile Reviewed. sd1 09:05 CBC with Diff Reviewed. sd1 09:05 Partial Thromboplastin Time Reviewed. sd1 09:05 Prothrombin Time Profile\E\INR Reviewed. sd1 09:05 Type & Screen Reviewed. sd1 09:05 CT Head Without Contrast Reviewed. sd1 09:05 Chest, 1 View Reviewed. sd1 09:07 UA Ordered. EDMS 09:07 Ammonia (Little Green Tube on Ice, Not Pea Green) Ordered. EDMS 09:07 Venous Blood Gas (large pea green tube on ice) Ordered. EDMS 09:07 Urine Culture Ordered. EDMS 09:24 Financial registration complete. lg 09:34 [facility] Payment Agreement was scanned into [employer] and attached to record. lg 09:38 Basic Metabolic Profile Reviewed. sd1 09:38 TROPONIN Reviewed. sd1 10:09 Basic Metabolic Profile Reviewed. sd1 10:09 Venous Blood Gas (large pea green tube on ice) Reviewed. sd1 10:09 CARDIAC INJURY PROFILE Reviewed. sd1 10:09 TROPONIN Reviewed. sd1 10:09 THYROID STIMULATING HORMONE Reviewed. sd1 10:11 Aspirin Chewable Tablet 324 mg PO once ordered. sd1 10:13 Drug Eval Toxicology ED Only Ordered. EDMS 10:17 ACETAMINOPHEN LEVEL Ordered. EDMS 10:17 ETHYL ALCOHOL (ETHANOL) Ordered. EDMS 10:17 LIVER PROFILE Ordered. EDMS 10:17 SALICYLATE LEVEL Ordered. EDMS 10:17 VITAMIN B12 LEVEL Ordered. EDMS 11:28 CARDIAC INJURY PROFILE Ordered. EDMS 11:28 CARDIAC INJURY PROFILE Ordered. EDMS 11:28 TROPONIN Ordered. EDMS 11:28 TROPONIN Ordered. EDMS 11:29 Admission / Observation Status ordered. EDMS 11:29 ECHOCARD,DOPPLER/COLOR FLOW ordered. EDMS 11:29 CT ANGIO HEAD Ordered. EDMS 11:29 CT ANGIO NECK Ordered. EDMS 11:29 NPO DIET ordered. EDMS 04/21 20:24 T-Sheet-- Draft Copy was scanned into [employer] and attached to record. klr Administered Medications: 04/20 10:41 Drug: Aspirin 324 mg [aspirin 81 mg chewable tablet (4 tabs)] Route: PO; ja5 Signatures: Dispatcher [employer] EDMS Mary Bonilla MD MD sd1 Corwin Prajapati Reg Reg lg Lizy Feliz, RN RN hs1 Fernanda Martines RN RN sls2 Glenys Marin Jessica, RN RN ja5 The chart was reviewed and I authenticate all verbal orders and agree with the evaluation and treatment provided.Corrections: (The following items were deleted from the chart) 09:13 09:07 CARDIAC INJURY PROFILE+LAB ordered. EDMS EDMS 09:13 09:07 TROPONIN+LAB ordered. EDMS EDMS 09:13 09:09 THYROID STIMULATING HORMONE+LAB ordered. EDMS EDMS 10:17 10:13 ACETAMINOPHEN LEVEL+LAB ordered. EDMS EDMS 10:17 10:13 ETHYL ALCOHOL (ETHANOL)+LAB ordered. EDMS EDMS 10:17 10:13 LIVER PROFILE+LAB ordered. EDMS EDMS 10:17 10:13 SALICYLATE LEVEL+LAB ordered. EDMS EDMS 10:17 10:14 VITAMIN B12 LEVEL+LAB ordered. EDNJ EDMS Attachments: 09:34 [facility] Payment Agreement lg 04/21 20:24 T-Sheet-- Draft Copy klr Chart Complete MTDD
--- NOTE | 2016-04-22 17:00 | EDDOCDS ---
Physician Documentation [facility] Name: Sukh Wright Age: 80 yrs Sex: Female : 1935 Arrival Date: 04/20/2016 Time: 07:26 Bed 21 Private MD: Daysi Chatman A Disposition: 04/20/16 10:46 Hospitalization ordered by Alfredo Rivera for Inpatient Admission. Preliminary diagnosis is Transient cerebral ischemic attack, unspecified. - Bed requested for PCU. - Status is Inpatient Admission. hs1 - Condition is Stable. - Problem is new. - Symptoms are resolved. Historical: - Allergies: no known allergies; - Home Meds: 1. aspirin 325 mg Oral TbEC 1 tab once daily (Last dose: 04/19/2016 19:00) 2. Tylenol 325 mg Oral tab 2 tabs as needed for heachache (Last dose: 04/18/2016) - PMHx: blind; Hypertension; - PSHx: Pacemaker Insertion; - Family history: Not pertinent. - Social history: Smoking status: Patient states was never smoker of tobacco. No barriers to communication noted, The patient speaks fluent [place]. - : The pt / caregiver states he / she is not on anticoagulants. Home medication list is obtained from family members. - Exposure Risk Screening:: None identified. Vital Signs: 04/20 07:38 BP 198 / 95; Pulse 90; Resp 18; Temp 97.8(O); Pulse Ox 97% on R/A; Pain 0/10; nb2 07:48 Weight 70.03 kg / 154.39 lbs; Height 5 ft. 3 in. (160.02 cm); ja5 08:18 BP 192 / 86 (auto/); ja5 08:18 Pulse 80 MON; Pulse Ox 94% ; ja5 09:40 Pulse 82 MON; Pulse Ox 96% ; ja5 09:41 BP 198 / 84 (auto/); ja5 09:52 BP 186 / 83 (auto/); ja5 09:54 Pulse 82 MON; Pulse Ox 95% ; ja5 09:56 BP 188 / 83 (auto/); ja5 09:56 Pulse 82 MON; Pulse Ox 96% ; ja5 10:11 BP 188 / 84 (auto/); ja5 10:11 Pulse 82 MON; Pulse Ox 96% ; ja5 10:25 Pulse 78 MON; Pulse Ox 95% ; ja5 10:26 BP 181 / 84 (auto/); ja5 10:40 Pulse 78 MON; Pulse Ox 93% ; ja5 10:41 BP 182 / 81 (auto/); ja5 10:55 Pulse 80 MON; Pulse Ox 95% ; ja5 10:56 BP 169 / 72 (auto/); ja5 11:08 Pulse 78 MON; Pulse Ox 94% ; ja5 11:11 BP 167 / 107 (auto/); ja5 11:25 Pulse 78 MON; Pulse Ox 96% ; ja5 11:26 BP 166 / 70 (auto/); ja5 11:36 Pulse Ox 97% ; ja5 11:40 Pulse 78 MON; ja5 11:41 BP 173 / 73 (auto/); ja5 11:49 Pulse 78 MON; Pulse Ox 95% ; ja5 11:56 BP 163 / 72 (auto/); ja5 12:10 Pulse 74 MON; ja5 12:11 BP 152 / 72 (auto/); ja5 12:25 Pulse 82 MON; ja5 12:26 BP 174 / 79 (auto/); ja5 12:33 BP 174 / 79; Pulse 94; Resp 20; Temp 97.9(O); Pulse Ox 97% on R/A; Pain 0/10; ja5 12:39 Pulse 88 MON; Pulse Ox 96% ; ja5 12:41 BP 161 / 75 (auto/); ja5 12:55 Pulse 74 MON; Pulse Ox 94% ; ja5 12:56 BP 172 / 77 (auto/); ja5 13:11 BP 166 / 79 (auto/); ja5 13:15 Pulse 74 MON; Pulse Ox 92% ; ja5 13:25 Pulse 78 MON; Pulse Ox 95% ; ja5 13:26 BP 171 / 79 (auto/); ja5 14:25 Pulse 76 MON; Pulse Ox 95% ; ja5 14:26 BP 222 / 133 (auto/); ja5 14:27 Pulse 82 MON; Pulse Ox 95% ; ja5 14:29 BP 221 / 90 (auto/); ja5 14:33 Pulse 74 MON; Pulse Ox 96% ; ja5 14:34 BP 205 / 88 (auto/); ja5 14:59 Pulse 80 MON; Pulse Ox 95% ; ja5 15:00 BP 208 / 93 (auto/); ja5 07:48 Body Mass Index 27.35 (70.03 kg, 160.02 cm) ja5 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 sd1 07:36 IV Saline Lock ordered. sd1 07:36 Rhythm Strip to chart ordered. sd1 07:37 Basic Metabolic Profile Ordered. EDMS 07:37 CBC with Diff Ordered. EDMS 07:37 Partial Thromboplastin Time Ordered. EDMS 07:38 Prothrombin Time Profile\E\INR Ordered. EDMS 07:38 Chest, 1 View Ordered. EDMS 07:38 Type & Screen Ordered. EDMS 07:38 CT Head Without Contrast Ordered. EDMS 07:38 ECG WITH READING ER PHYS+CARDIAG ordered. EDMS 07:48 BED REQUEST+ADM ordered. EDMS 09:05 Basic Metabolic Profile Reviewed. sd1 09:05 CBC with Diff Reviewed. sd1 09:05 Partial Thromboplastin Time Reviewed. sd1 09:05 Prothrombin Time Profile\E\INR Reviewed. sd1 09:05 Type & Screen Reviewed. sd1 09:05 CT Head Without Contrast Reviewed. sd1 09:05 Chest, 1 View Reviewed. sd1 09:07 UA Ordered. EDMS 09:07 Ammonia (Little Green Tube on Ice, Not Pea Green) Ordered. EDMS 09:07 Venous Blood Gas (large pea green tube on ice) Ordered. EDMS 09:07 Urine Culture Ordered. EDMS 09:24 Financial registration complete. lg 09:34 [facility] [place] was scanned into [employer] and attached to record. lg 09:38 Basic Metabolic Profile Reviewed. sd1 09:38 TROPONIN Reviewed. sd1 10:09 Basic Metabolic Profile Reviewed. sd1 10:09 Venous Blood Gas (large pea green tube on ice) Reviewed. sd1 10:09 CARDIAC INJURY PROFILE Reviewed. sd1 10:09 TROPONIN Reviewed. sd1 10:09 THYROID STIMULATING HORMONE Reviewed. sd1 10:11 Aspirin Chewable Tablet 324 mg PO once ordered. sd1 10:13 Drug Eval Toxicology ED Only Ordered. EDMS 10:17 ACETAMINOPHEN LEVEL Ordered. EDMS 10:17 ETHYL ALCOHOL (ETHANOL) Ordered. EDMS 10:17 LIVER PROFILE Ordered. EDMS 10:17 SALICYLATE LEVEL Ordered. EDMS 10:17 VITAMIN B12 LEVEL Ordered. EDMS 11:28 CARDIAC INJURY PROFILE Ordered. EDMS 11:28 CARDIAC INJURY PROFILE Ordered. EDMS 11:28 TROPONIN Ordered. EDMS 11:28 TROPONIN Ordered. EDMS 11:29 Admission / Observation Status ordered. EDMS 11:29 ECHOCARD,DOPPLER/COLOR FLOW ordered. EDMS 11:29 CT ANGIO HEAD Ordered. EDMS 11:29 CT ANGIO NECK Ordered. EDMS 11:29 NPO DIET ordered. EDMS 04/21 20:24 T-Sheet-- Draft Copy was scanned into [employer] and attached to record. klr Administered Medications: 04/20 10:41 Drug: Aspirin 324 mg [aspirin 81 mg chewable tablet (4 tabs)] Route: PO; ja5 Signatures: Dispatcher [employer] EDMS Mary Bonilla MD MD sd1 Corwin Prajapati Reg Reg lg Lizy Feliz, RN RN hs1 Fernanda Martines RN RN sls2 Glenys Marin Jessica, RN RN ja5 The chart was reviewed and I authenticate all verbal orders and agree with the evaluation and treatment provided.Corrections: (The following items were deleted from the chart) 09:13 09:07 CARDIAC INJURY PROFILE+LAB ordered. EDMS EDMS 09:13 09:07 TROPONIN+LAB ordered. EDMS EDMS 09:13 09:09 THYROID STIMULATING HORMONE+LAB ordered. EDMS EDMS 10:17 10:13 ACETAMINOPHEN LEVEL+LAB ordered. EDMS EDMS 10:17 10:13 ETHYL ALCOHOL (ETHANOL)+LAB ordered. EDMS EDMS 10:17 10:13 LIVER PROFILE+LAB ordered. EDMS EDMS 10:17 10:13 SALICYLATE LEVEL+LAB ordered. EDMS EDMS 10:17 10:14 VITAMIN B12 LEVEL+LAB ordered. EDTN EDMS Attachments: 09:34 [facility] [place] Agreement lg 04/21 20:24 T-Sheet-- Draft Copy klr Chart Complete MTDD
[2016-04-22] MEDS: ACETAMINOPHEN TAB 650MG DOSE (2X325MG) PO PRN (17:57)
[2016-04-22] MEDS ORDERED: CALCIUM CARBONATE 500 MG CHEW U/D PO PRN (19:15)
[2016-04-22] MEDS: ASCORBIC ACID 500 MG TAB PO SCH (20:03)
[2016-04-22 20:27] VITALS: BP 122/70
[2016-04-22 23:49] VITALS: BP 130/80
[2016-04-23 04:04] VITALS: BP 120/82
[2016-04-23 05:15] LABS: MEAN CORPUSCULAR HGB CONC 32.3 g/dl (32.0-36.5); MEAN CORPUSCULAR VOLUME 89.7 fl (80.0-96.0); RED CELL DISTRIBUTION WIDTH 13.3 % (11.5-14.5); WHITE BLOOD COUNT 4.3 K/mm3 (4.0-10.0)
[2016-04-23 05:31] LABS: ALBUMIN 3.4 GM/DL (3.2-5.2); ALKALINE PHOSPHATASE 84 U/L (45-117); ALT/SGPT 15 U/L (12-78); ANION GAP 7 MEQ/L (8-16); AST/SGOT 21 U/L (15-37); BILIRUBIN,TOTAL 0.3 MG/DL (0.2-1.0); BLOOD UREA NITROGEN 16 MG/DL (7-18); CALCIUM LEVEL 8.8 MG/DL (8.8-10.2); CARBON DIOXIDE LEVEL 29 MEQ/L (21-32); CHLORIDE LEVEL 107 MEQ/L (98-107); CREATININE FOR GFR 0.75 MG/DL (0.55-1.02); GLOMERULAR FILTRATION RATE > 60.0 (>39); GLUCOSE, FASTING 101 MG/DL (83-110); POTASSIUM SERUM 3.5 MEQ/L (3.5-5.1); SODIUM LEVEL 143 MEQ/L (136-145); TOTAL PROTEIN 6.8 GM/DL (6.4-8.2)
[2016-04-23] MEDS: SLF 3 ML SYR IV SCH ×3 (06:26→20:15)
--- NOTE | 2016-04-23 06:43 | ECHO ---
DATE OF PROCEDURE: 04/20/2016 REFERRING PHYSICIAN: Alfredo Rivera MD PATIENT LOCATION: Room 3222 REASON FOR ECHOCARDIOGRAM: TIA. 2D MEASUREMENTS: IVS: 1.3 cm LV: 5.0 cm LVPW: 1.3 cm LA: 3.7 cm Aorta: 2.9 cm IVC: 1.4 cm DOPPLER MEASUREMENTS: Peak velocity across the aortic valve: 2.6 m/s Peak velocity across the LVOT: 1.1 m/s Mitral E: 1.4, Mitral A: 0.8, with a ratio of 1.8 Maximum tricuspid valve velocity: 2.6 m/s 2D COMMENTS: 1. Normal left ventricular size with mildly increased left ventricular wall thickness and a normal global left ventricular systolic function. The estimated global left ventricular systolic ejection fraction is 60 to 65%. 2. Mildly to moderately enlarged left atrium. Normal right atrium and right ventricle. 3. The atrial septum appeared to be normal without evidence of defect or shunt. 4. Normal aortic root. 5. No pericardial effusion seen. 6. Moderately calcified aortic valve with mildly restricted leaflet motion. Moderately calcified mitral annulus with normal anterior mitral valve leaflet motion. Normal tricuspid valve. The pulmonic valve and proximal pulmonary artery branches were not well visualized. 7. The inferior vena cava was normal in size, central venous pressure is most likely normal. DOPPLER: It detects mild aortic regurgitation, moderately severe mitral regurgitation, moderate tricuspid regurgitation and trace pulmonic regurgitation. The calculated pulmonary artery systolic pressure varied between 30 to 40 mmHg. Assessment of the left ventricle diastolic function appeared to be normal. IMPRESSION: 1. Normal global left ventricular systolic function with mild concentric left ventricular hypertrophy. Left ventricular diastolic function appeared to be normal. 2. Aortic valve sclerosis with mild aortic stenosis and mild aortic regurgitation. 3. Moderately severe mitral regurgitation with mitral annulus calcification and enlarged left atrium. 4. Moderate tricuspid regurgitation with mild pulmonary hypertension. 5. Trace pulmonic regurgitation. 6. Not mentioned above, pacemaker wire defect noted.
[2016-04-23 07:05] VITALS: BP 136/63
[2016-04-23] MEDS: ATORVASTATIN 20 MG TAB PO SCH (09:03)
[2016-04-23] MEDS: PANTOPRAZOLE 40MG TAB (PROTONIX) PO SCH (09:04)
[2016-04-23] MEDS: risperiDONE 0.25 MG TAB PO SCH (09:04)
[2016-04-23] MEDS: CLOPIDOGREL 75 MG TAB PO SCH (09:04)
--- NOTE | 2016-04-23 11:13 | IPNPDOC ---
Text Note Date of Service The patient was seen on 04/23/16. NOTE Subjective: Pt denies any complaints. No CP/SOB/Palpitations. No MCCALL/Weakness. Objective: PHYSICAL EXAMINATION: General: No acute distress, laying comfortably in bed. HEENT: Moist mucous membranes. Neck: No JVD or lymphadenopathy Cardiac: RRR, No murmurs Pulm: Clear to auscultation b/l. No wheezing, rhonchi Abd: NT/ND + BS Ext: No edema or cyanosis Neuro: Strength 5/5 BUE and BLE. CN 2-12 intact. 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 Negative pronator drift. Negative Babinki. Sensation to fine touch intact. NIH 0. LABORATORY DATA: See below. IMAGING: CTA of the neck 04/20/16 IMPRESSION: 1. Moderate stenosis of 60% of the right internal carotid artery at its origin. 2. Severe stenosis of 75% of the left internal carotid artery at its origin. CTA head 04/20/16 IMPRESSION: 1. There is no aneurysm or arteriovenous malformation. 2. Atherosclerotic disease as described above. 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 No evidence for acute intracranial pathology or trauma/injury. Chest x-ray 04/20/16 Impression: Chronic stable changes. No acute cardiopulmonary process. MICROBIOLOGY: Please see below. ASSESSMENT/PLAN: 1. TIA- patient with left-sided hemiparesis that has resolved by the time the patient presented to the ED. Unable to obtain MRI given PPM. CTA of the head and neck (see above). CT of the head without contrast notable for prior strokes. 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 Patient had been on aspirin 325 daily, and the daughter states she gives it to her daily. Cont atorvastatin. Cont Plavix. Neuro checks. PT/OT/ST. 2. Pt likely has baseline dementia. Occasionally has hallucinations that have been going on for >1 year. TSH, B12, ammonia level within normal limits. Electrolytes within normal limits. No new medications have been started. Daughter states pt needs placement as she has trouble taking care of her home, as she is unable to provide 24 hr care. PFS onboard. Started on Risperidone, which she is tolerating well. 3. Carotid stenosis- patient has refused aggressive therapy in the past. Given the findings of severe stenosis within the left ICA, I have discussed these findings with the daughter, who believes her mother would not want surgery. 4. Elevated blood pressure - Started on Amlodipine. BP improved. 5. History of third-degree AV block status post PPM DVT prophylaxis- enoxaparin. Pending placement. Daughter (Jia) phone number is [phone]. VS,Fishbone, I+O VS, Fishbone, I+O Laboratory Tests 04/23/16 04:39 Calcium Level 8.8, Aspartate Amino Transf (AST/SGOT) 21, Alanine Aminotransferase (ALT/SGPT) 15, Alkaline Phosphatase 84, Total Bilirubin 0.3, Total Protein 6.8, Albumin 3.4, Red Blood Count 3.66 L, Mean Corpuscular Volume 89.7, Mean Corpuscular Hemoglobin 29.0, Mean Corpuscular Hemoglobin Concent 32.3 , Red Cell Distribution Width 13.3 Vital Signs Date Time Temp Pulse Resp B/P Pulse Ox O2 Delivery O2 Flow Rate FiO2 04/23/16 09:05 70 136/63 04/23/16 04:04 95.7 18 98 Room Air I&O- Last 24 Hours up to 6 AM 04/23/16 05:59 Intake Total 540 ml Output Total 865 ml Balance -325 ml MAGALYS BROOKS MD Apr 23, 2016 11:13
[2016-04-23 11:40] VITALS: BP 130/60
[2016-04-23] MEDS: ACETAMINOPHEN TAB 650MG DOSE (2X325MG) PO PRN (17:39)
[2016-04-23] MEDS: ASCORBIC ACID 500 MG TAB PO SCH (20:15)
--- NOTE | 2016-04-23 21:42 | EDDOCDS ---
Nurse's Notes [facility] Name: Sukh Wright Age: 80 yrs Sex: Female : 1935 Arrival Date: 04/20/2016 Time: 07:26 Bed 21 Private MD: Daysi Chatman A Diagnosis: Transient cerebral ischemic attack, unspecified Presentation: 04/20 07:29 Presenting complaint: EMS states: were called to residence for possible stroke by 4 family. Allegedly patient was last seen well yesterday at noon. EMS found left leg to be weak. ." EMS states that patient was answering questions well and then was "seeing snow and krista of hay in the ambulance". Suicide/Homicide risk assessment- the patient denies having any suicidal and/or homicidal ideations and does not present with any other emotional, behavioral or mental health complaints. Status: Patient is not a emergency medical service coordinator or dependent. Transition of care: patient was not received from another setting of care. Care prior to arrival: See EMS report. Saline lock initiated. Glucose check. 126 mg/dl. 07:29 Acuity: TALI Level 2 [facility] 07:29 Method Of Arrival: Ambulance [facility] 07:30 Adult Sepsis Screening: Patient has new or worsening altered mentation (1 point). [facility] Patient's respiratory rate is less than 22. Systolic blood pressure is greater than 100. Patient has a qSOFA score of 1- Negative Sepsis Screen. Historical: - Allergies: no known allergies; - Home Meds: 1. aspirin 325 mg Oral TbEC 1 tab once daily (Last dose: 04/19/2016 19:00) 2. Tylenol 325 mg Oral tab 2 tabs as needed for heachache (Last dose: 04/18/2016) - PMHx: blind; Hypertension; - PSHx: Pacemaker Insertion; - Family history: Not pertinent. - Social history: Smoking status: Patient states was never smoker of tobacco. No barriers to communication noted, The patient speaks fluent Czech. - : The pt / caregiver states he / she is not on anticoagulants. Home medication list is obtained from family members. - Exposure Risk Screening:: None identified. Screenin:44 Screening information is obtained from the patient, family members. Fall risk: At risk ja5 due to Blindness. Assistance ADL's: Requires assistance with meal preparation, this assistance is provided by family members, bathing, assistance is provided by family members, dressing, assistance is provided by family members, housework, assistance is provided by family members, medication administration, assistance is provided by family members. Abuse/DV Screen: The patient / caregiver reports he/she is: not in a situation that causes fear, pain or injury. Nutritional screening: On no prescribed diet. Advance Directives: Currently, there is a health care proxy, Alysia Rodriguez, daughter. There is an active DNR order and the pt has a copy here at this time. There is a living will, and a copy is available at this time. There is an active Power of Section Chief, Alysia Rodriguez, daughter. home support is adequate. Assessment: 07:40 Neurological: Level of Consciousness is awake, alert, Oriented to person, place, time, ja5 Tilt Wall Supervisor are equal bilaterally Moves all extremities. Speech is normal, Facial symmetry appears normal. 07:58 General: Appears in no apparent distress, comfortable, Behavior is appropriate for age, ja5 cooperative. Pain: Denies pain. Neurological: Level of Consciousness is awake, alert, Oriented to person, place, time, Tilt Wall Supervisor are equal bilaterally Moves all extremities. Speech is normal, Facial symmetry appears normal. Cardiovascular: Capillary refill < 3 seconds Heart tones S1 S2 present. Respiratory: Airway is patent Respiratory effort is even, unlabored, Breath sounds are clear bilaterally. Derm: Skin is pink, warm & dry. Musculoskeletal: Circulation, motion, and sensation intact. 08:32 General: Patient is laying in stretcher asleep, arouses easily and is alert and ja5 oriented. Patient denies dizziness, numbness, her speech is clear, she has had intermittent moments of confusion/hallucinations of which the provider is aware. At 0820 patient stated she sees a leopard in the room and asked what I was wearing on my head. Respirations are even and unlabored, color is pink. SR with PVS showing on environmental monitoring technician. Bed in low position, call warren in reach, daughter is at bedside. . 09:55 General: Patient laying supine in stretcher, denies dizziness is not currently having ja5 any confusion. Respirations are even and unlabored, color is pink, O2 sat 96% on RA. Daughter is currently at bedside, patient states she has no needs at this time.. 10:42 General: Patient is awake, alert and oriented, denies dizziness, speech is clear, she ja5 moves all extremities. Respirations are even and unlabored, color is pink, SR on environmental monitoring technician, as she lays in stretcher with her daughter at the bedside. Blood pressure has been consistently elevated, see vital signs, provider has been made aware of these trends.. 12:34 General: Patient back from her CT scan which she tolerated well. She is back in room ja5 laying in her stretcher, denies dizziness, tingling, numbness, her speech is clear and moves all extremities. SR on environmental monitoring technician, respirations are even and unlabored, color is pink, O\\T\\ sat reading 97% on room air. Call warren in reach, bed in low position.. 14:29 General: Pt lying on stretcher. Asking, "what is the breed of that dog over there?" Pt goldy is aware that she is in the hospital. Pt has pulled out right antecubital saline lock. No bleeding from site. Left forearm saline lock wrapped with Conform dressing. Vital Signs: 07:38 BP 198 / 95; Pulse 90; Resp 18; Temp 97.8(O); Pulse Ox 97% on R/A; Pain 0/10; nb2 07:48 Weight 70.03 kg; Height 5 ft. 3 in. (160.02 cm); ja5 08:18 BP 192 / 86 (auto/); ja5 08:18 Pulse 80 MON; Pulse Ox 94% ; ja5 09:40 Pulse 82 MON; Pulse Ox 96% ; ja5 09:41 BP 198 / 84 (auto/); ja5 09:52 BP 186 / 83 (auto/); ja5 09:54 Pulse 82 MON; Pulse Ox 95% ; ja5 09:56 BP 188 / 83 (auto/); ja5 09:56 Pulse 82 MON; Pulse Ox 96% ; ja5 10:11 BP 188 / 84 (auto/); ja5 10:11 Pulse 82 MON; Pulse Ox 96% ; ja5 10:25 Pulse 78 MON; Pulse Ox 95% ; ja5 10:26 BP 181 / 84 (auto/); ja5 10:40 Pulse 78 MON; Pulse Ox 93% ; ja5 10:41 BP 182 / 81 (auto/); ja5 10:55 Pulse 80 MON; Pulse Ox 95% ; ja5 10:56 BP 169 / 72 (auto/); ja5 11:08 Pulse 78 MON; Pulse Ox 94% ; ja5 11:11 BP 167 / 107 (auto/); ja5 11:25 Pulse 78 MON; Pulse Ox 96% ; ja5 11:26 BP 166 / 70 (auto/); ja5 11:36 Pulse Ox 97% ; ja5 11:40 Pulse 78 MON; ja5 11:41 BP 173 / 73 (auto/); ja5 11:49 Pulse 78 MON; Pulse Ox 95% ; ja5 11:56 BP 163 / 72 (auto/); ja5 12:10 Pulse 74 MON; ja5 12:11 BP 152 / 72 (auto/); ja5 12:25 Pulse 82 MON; ja5 12:26 BP 174 / 79 (auto/); ja5 12:33 BP 174 / 79; Pulse 94; Resp 20; Temp 97.9(O); Pulse Ox 97% on R/A; Pain 0/10; ja5 12:39 Pulse 88 MON; Pulse Ox 96% ; ja5 12:41 BP 161 / 75 (auto/); ja5 12:55 Pulse 74 MON; Pulse Ox 94% ; ja5 12:56 BP 172 / 77 (auto/); ja5 13:11 BP 166 / 79 (auto/); ja5 13:15 Pulse 74 MON; Pulse Ox 92% ; ja5 13:25 Pulse 78 MON; Pulse Ox 95% ; ja5 13:26 BP 171 / 79 (auto/); ja5 14:25 Pulse 76 MON; Pulse Ox 95% ; ja5 14:26 BP 222 / 133 (auto/); ja5 14:27 Pulse 82 MON; Pulse Ox 95% ; ja5 14:29 BP 221 / 90 (auto/); ja5 14:33 Pulse 74 MON; Pulse Ox 96% ; ja5 14:34 BP 205 / 88 (auto/); ja5 14:59 Pulse 80 MON; Pulse Ox 95% ; ja5 15:00 BP 208 / 93 (auto/); ja5 07:48 Body Mass Index 27.35 (70.03 kg, 160.02 cm) ja5 Vitals: 07:38 Log In Time N/A - ambulance arrival. nb2 ED Course: 07:25 The patient / caregiver is instructed regarding the plan of care and ED course. jc4 07:28 Patient visited by Lavinia Ahn, Rail Track Maintainer. lbd 07:28 Patient moved to Waiting lbd 07:29 Daysi Chatman is Private Physician. lbd 07:29 Rola Brown RN is Primary Nurse. lbd 07:29 [place], BENOIT is Primary Nurse. lbd 07:29 Laura Encinas,BENOIT is Primary Nurse. lbd 07:29 Patient moved to 4 lbd 07:34 Triage Initiated jc4 07:35 Mary Bonilla MD is Attending Physician. sd1 07:35 Patient visited by Mary Bonilla MD. sd1 07:39 Patient visited by Amber Salazar. nb2 07:44 EKG done. (by ED staff). Reviewed by Mary Bonilla MD. jrd 07:57 Basic Metabolic Profile Sent. ja5 07:57 CBC with Diff Sent. ja5 07:57 Partial Thromboplastin Time Sent. ja5 07:57 Prothrombin Time Profile\\E\\INR Sent. ja5 07:57 Type & Screen Sent. ja5 08:01 Maintain field IV. Dressing intact. Site clean & dry. Gauge & site: 20g left forearm. ja5 08:02 Inserted saline lock: 20 gauge in right antecubital area. ja5 08:03 Chest, 1 View Returned. EDMS 08:05 Primary Nurse role handed off by Rola Brown RN mlb1 08:44 Patient visited by Laura Encinas RN. ja5 08:44 CT Head Without Contrast Returned. EDMS 09:34 [facility] Payment Agreement was scanned into [employer] and attached to record. lg 09:55 Patient visited by Laura Encinas RN. ja5 09:59 Venous Blood Gas (large pea green tube on ice) Sent. jc4 09:59 Ammonia (Little Green Tube on Ice, Not Pea Green) Sent. jc4 10:44 Patient visited by Laura Encinas RN. ja5 10:46 Alfredo Rivera is Hospitalizing Provider. sd1 10:49 ELECTROCARDIOGRAM ADULT Returned. EDMS 12:18 Patient moved to Admit Hold kpj 13:31 Patient visited by Lorie Segundo. cmb 13:32 Patient visited by Lorie Segundo. cmb 13:32 Verbal reassurance given. cmb 14:24 Patient visited by Lorie Segundo. cmb 15:13 Patient moved to 21 [facility] 15:40 CT ANGIO HEAD Returned. EDMS 15:40 CT ANGIO NECK Returned. EDMS 04/21 20:24 T-Sheet-- Draft Copy was scanned into [employer] and attached to record. klr Administered Medications: 04/20 10:41 Drug: Aspirin 324 mg [aspirin 81 mg chewable tablet (4 tabs)] Route: PO; ja5 Order Results: Lab Order: Basic Metabolic Profile; [facility]' 04/20/16 07:55 Test: GLUCOSE, FASTING; Value: 108; Range: 83-110; Units: MG/DL; Status: F Test: BLOOD UREA NITROGEN; Value: 24; Range: 7-18; Abnormal: Above high normal; Units: MG/DL; Status: F Test: CREATININE FOR GFR; Value: 0.95; Range: 0.55-1.02; Units: MG/DL; Status: F Test: GLOMERULAR FILTRATION RATE; Value: > 60.0; Range: >39; Status: F Test: SODIUM LEVEL; Value: 141; Range: 136-145; Units: MEQ/L; Status: F Test: POTASSIUM SERUM; Value: 3.8; Range: 3.5-5.1; Units: MEQ/L; Status: F Test: CHLORIDE LEVEL; Value: 105; Range: 98-107; Units: MEQ/L; Status: F Test: CARBON DIOXIDE LEVEL; Value: 30; Range: 21-32; Units: MEQ/L; Status: F Test: ANION GAP; Value: 6; Range: 8-16; Abnormal: Below low normal; Units: MEQ/L; Status: F Test: CALCIUM LEVEL; Value: 10.4; Range: 8.8-10.2; Abnormal: Above high normal; Units: MG/DL; Status: F Test Note: ; Units are mL/min/1.73 m2 Chronic Kidney Disease Staging per NKF: Stage I & II GFR >=60 Normal to Mildly Decreased Stage III GFR 30-59 Moderately Decreased Stage IV GFR 15-29 Severely Decreased Stage V GFR <15 Very Little GFR Left ESRD GFR <15 on [employer]OOFER Lab Order: CBC with Diff; SPEC' 04/20/16 07:56 Test: WHITE BLOOD COUNT; Value: 6.5; Range: 4.0-10.0; Units: K/mm3; Status: F Test: RED BLOOD COUNT; Value: 3.84; Range: 4.00-5.40; Abnormal: Below low normal; Units: M/mm3; Status: F Test: HEMOGLOBIN; Value: 11.1; Range: 12.0-16.0; Abnormal: Below low normal; Units: g/dl; Status: F Test: HEMATOCRIT; Value: 35.2; Range: 36.0-47.0; Abnormal: Below low normal; Units: %; Status: F Test: MEAN CORPUSCULAR VOLUME; Value: 91.5; Range: 80.0-96.0; Units: fl; Status: F Test: MEAN CORPUSCULAR HEMOGLOBIN; Value: 28.9; Range: 27.0-33.0; Units: pg; Status: F Test: MEAN CORPUSCULAR HGB CONC; Value: 31.6; Range: 32.0-36.5; Abnormal: Below low normal; Units: g/dl; Status: F Test: RED CELL DISTRIBUTION WIDTH; Value: 13.1; Range: 11.5-14.5; Units: %; Status: F Test: PLATELET COUNT, AUTOMATED; Value: 287; Range: 150-450; Units: k/mm3; Status: F Test: NEUTROPHILS %; Value: 81.5; Range: 36.0-66.0; Abnormal: Above high normal; Units: %; Status: F Test: LYMPH %; Value: 10.5; Range: 24.0-44.0; Abnormal: Below low normal; Units: %; Status: F Test: MONO %; Value: 5.9; Range: 0.0-5.0; Abnormal: Above high normal; Units: %; Status: F Test: EOS %; Value: 0.8; Range: 0.0-3.0; Units: %; Status: F Test: BASO %; Value: 0.1; Range: 0.0-1.0; Units: %; Status: F Test: LARGE UNSTAINED CELL %; Value: 1.1; Range: 0.0-4.0; Units: %; Status: F Test: NEUTROPHILS #; Value: 5.3; Range: 1.8-7.7; Units: K/mm3; Status: F Test: LYMPH #; Value: 0.8; Range: 1.5-4.5; Abnormal: Below low normal; Units: K/mm3; Status: F Test: MONO #; Value: 0.4; Range: 0.0-0.8; Units: K/mm3; Status: F Test: EOS #; Value: 0.1; Range: 0.0-0.50; Units: K/mm3; Status: F Test: BASO #; Value: 0.0; Range: 0.0-0.2; Units: K/mm3; Status: F Test: LARGE UNSTAINED CELL #; Value: 0.1; Range: 0.0-0.4; Units: K/mm3; Status: F Lab Order: Partial Thromboplastin Time; 04/20/16 07:55 Test: PARTIAL THROMBOPLASTIN TIME; Value: 32.6; Range: 26.6-37.1; Units: SECONDS; Status: F Lab Order: Prothrombin Time Profile\\E\\INR; 04/20/16 07:55 Test: PROTHROMBIN TIME; Value: 13.7; Range: 12.3-14.5; Units: SECONDS; Status: F Test: INR; Value: 1.04; Status: F Test Note: ; THERAPUTIC HUMAN INR VALUES INDICATIONS NORMAL RANGES PROPHYLAXIS/TREATMENT OF: VENOUS THROMBOSIS 2.0-3.0 PULMONARY EMBOLISM 2.0-3.0 PREVENTION OF SYSTEMIC EMBOLISM FROM: TISSUE HEART VALVES 2.0-3.0 ACUTE MYOCARDIAL INFARCTION 2.0-3.0 VALVULAR HEART DISEASE 2.0-3.0 ATRIAL FIBRILLATION 2.0-3.0 MECHANICAL VALVES(HIGH RISK) 2.5-3.5 RECURRENT MYOCARDIAL INFARCTION 2.5-3.5 Lab Order: Type & Screen; 04/20/16 07:56 Test: BLOOD TYPE; Value: B POS; Status: F Test: AB SCREEN (INDIRECT MOO)VIS; Value: NEGATIVE; Status: F Lab Order: Ammonia ([place] Tube on Ice, Not Pea Green); 04/20/16 09:36 Test: AMMONIA; Value: < 10; Range: <32; Units: uMOL/L; Status: F Lab Order: Venous Blood Gas (large pea green tube on ice); [facility] 04/20/16 09:36 Test: VENOUS PH; Value: 7.357; Range: 7.330-7.430; Units: UNITS; Status: F Test: VENOUS PARTIAL PRESSURE CO2; Value: 48.0; Range: 38.0-50.0; Units: mmHg; Status: F Test: VENOUS PARTIAL PRESSURE O2; Value: 44.0; Range: 30.0-50.0; Units: mmHg; Status: F Test: VENOUS TOTAL CO2; Value: 27.8; Range: 24.0-28.0; Units: MEQ/L; Status: F Test: VENOUS HCO3; Value: 26.3; Range: 23.0-27.0; Units: MEQ/L; Status: F Test: VENOUS BASE EXCESS; Value: 0.4; Range: -2.0-2.0; Status: F Test: VENOUS STANDARD HCO3; Value: 24.4; Units: MEQ/L; Status: F Test: VENOUS O2 SATURATION; Value: 77.0; Range: 60.0-80.0; Units: %; Status: F Lab Order: CARDIAC INJURY PROFILE; [facility] 04/20/16 07:55 Test: CPK CREATINE PHOSPHOKINASE; Value: 188; Range: 26-192; Units: U/L; Status: F Test: CK-MB VALUE MASS; Value: 1.8; Range: 0.0-3.6; Units: NG/ML; Status: F Test: MB/CK RELATIVE INDEX; Value: 0.95; Range: < OR =4; Status: F Test Note: ; DIAGNOSIS CRITERIA MMB ng/ml Relative Index (RI) NON-AMI < or = 5 N/A DO ZONE > 5 < or = 4 AMI > 5 > 4 Lab Order: TROPONIN; [facility] 04/20/16 07:55 Test: TROPONIN I; Value: 0.02; Range: < 0.10; Units: NG/ML; Status: F Test Note: ; Troponin I Reference Interval for Mohive LOCI: 99th Percentile= 0.00-0.045 ng/ml Risk Stratification: <= 0.10 ng/ml Decreased Risk for Adverse Clinical Events. 0.10-1.50 ng/ml Increased Risk for Adverse Clinical Events. Evaluation of additional criterion and/or repeat testing in 2-6 hours is suggested to rule out myocardial damage. >= 1.50 ng/ml Indicative of Myocardial Injury. Lab Order: THYROID STIMULATING HORMONE; 04/20/16 07:55 Test: THYROID STIMULATING HORMONE; Value: 2.690; Range: 0.358-3.740; Units: uIU/ML; Status: F Lab Order: ACETAMINOPHEN LEVEL; 04/20/16 07:55 Test: ACETAMINOPHEN LEVEL; Value: < 2.0; Range: 10.0-30.0; Abnormal: Below low normal; Units: UG/ML; Status: F Lab Order: ETHYL ALCOHOL (ETHANOL); 04/20/16:55 Test: ETHYL ALCOHOL (ETHANOL); Value: < 0.003; Range: 0.000-0.010; Units: %; Status: F Lab Order: LIVER PROFILE; 04/20/16 07:55 Test: AST/SGOT; Value: 24; Range: 15-37; Units: U/L; Status: F Test: ALT/SGPT; Value: 16; Range: 12-78; Units: U/L; Status: F Test: ALKALINE PHOSPHATASE; Value: 93; Range: 45-117; Units: U/L; Status: F Test: BILIRUBIN,TOTAL; Value: 0.4; Range: 0.2-1.0; Units: MG/DL; Status: F Test: BILIRUBIN,DIRECT; Value: 0.1; Range: 0.0-0.2; Units: MG/DL; Status: F Test: TOTAL PROTEIN; Value: 7.9; Range: 6.4-8.2; Units: GM/DL; Status: F Test: ALBUMIN; Value: 3.9; Range: 3.2-5.2; Units: GM/DL; Status: F Test: ALBUMIN/GLOBULIN RATIO; Value: 0.98; Range: 1.00-1.93; Abnormal: Below low normal; Status: F Lab Order: SALICYLATE LEVEL; 04/20/16 07:55 Test: SALICYLATE LEVEL; Value: < 1.7; Range: 5.0-30.0; Abnormal: Below low normal; Units: MG/DL; Status: F Lab Order: VITAMIN B12 LEVEL; 22/17 07:55 Test: VITAMIN B12 LEVEL; Value: 1263; Range: 247-911; Abnormal: Above high normal; Units: PG/ML; Status: F Test Note: ; VITAMIN B12 NORMAL RANGE NORMAL 247 - 911 PG/ML INDETERMINATE 211 - 246 PG/ML DEFICIENT LESS THAN 211 PG/ML Lab Order: CARDIAC INJURY PROFILE; SPEC'M 04/20/16 11:44 Test: CPK CREATINE PHOSPHOKINASE; Value: 183; Range: 26-192; Units: U/L; Status: F Test: CK-MB VALUE MASS; Value: 1.8; Range: 0.0-3.6; Units: NG/ML; Status: F Test: MB/CK RELATIVE INDEX; Value: 0.98; Range: < OR =4; Status: F Test Note: ; DIAGNOSIS CRITERIA MMB ng/ml Relative Index (RI) NON-AMI < or = 5 N/A OD ZONE > 5 < or = 4 AMI > 5 > 4 Lab Order: TROPONIN; SPEC'M 04/20/16 11:44 Test: TROPONIN I; Value: 0.03; Range: < 0.10; Abnormal: Delta; Units: NG/ML; Status: F Test Note: ; Troponin I Reference Interval for Mohive LOCI: 99th Percentile= 0.00-0.045 ng/ml Risk Stratification: <= 0.10 ng/ml Decreased Risk for Adverse Clinical Events. 0.10-1.50 ng/ml Increased Risk for Adverse Clinical Events. Evaluation of additional criterion and/or repeat testing in 2-6 hours is suggested to rule out myocardial damage. >= 1.50 ng/ml Indicative of Myocardial Injury. Radiology Order: CT Head Without Contrast Test: CT Head Without Contrast REASON FOR EXAMINATION: left weak >4.5 hours; Clinical: Left-sided weakness .; ; Comparison: 06/22/2015 .; ; Findings:; Age related atrophy is appreciated. 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 The ventricles, sulci, and cisterns are; normal in position and appearance. Do-white differentiation is maintained. No; acute intracranial hemorrhage, mass/mass effect, pathology or trauma/injury. No; evidence for acute infarction. No extra-axial fluid collection. Calvarium is; intact. Paranasal sinuses and mastoid air cells are clear.; ; Impression:; Age related atrophy and microvascular ischemic changes including old right; frontal and left basal ganglia infarcts.; No evidence for acute intracranial pathology or trauma/injury.; ; ; Signed by; Kj De La Rosa MD 04/20/2016 08:16 A; Radiology Order: Chest, 1 View Test: Chest, 1 View REASON FOR EXAMINATION: weakness; Clinical: Weakness.; ; Comparison: 04/09/2012.; ; Findings:; Mediastinum and cardiac silhouette are stable. Lung leary demonstrate chronic; interstitial changes without acute consolidation, effusion, or pneumothorax.; Skeletal structures stable.; ; Impression:; Chronic stable changes. No acute cardiopulmonary process.; ; ; Signed by; Kj De La Rosa MD 04/20/2016 07:53 A; Radiology Order: ELECTROCARDIOGRAM ADULT Test: ELECTROCARDIOGRAM ADULT REASON FOR EXAMINATION: weakness; Stationary ECG Study; [facility] ED; ; Test Date: 2016-04-20; [facility] Department:; Room: -; Gender: F Beck Operator: naif; : 1935 Requested By: Mary Bonilla; Order Number: [id number] Reading MD: Mary Bonilla; Measurements; Intervals [place]; Rate: 84 P: 46; MI: 151 QRS: -59; QRSD: 167 T: 99; QT: 431; QTc: 512; Interpretive Statements; ELECTRONIC VENTRICULAR PACEMAKER; ABNORMAL RHYTHM ECG; SINUS RHYTHM; SIMILAR 06/22/15; Electronically Signed On 04-20-2016 10:06:25 EST by Mary Bonilla; Radiology Order: CT ANGIO HEAD Test: CT ANGIO HEAD REASON FOR EXAMINATION: tia; unable to obatin mri; CT ANGIO HEAD:; ; HISTORY: TIAs.; ; CONTRAST: Isovue-370, 75 mL.; ; There is no aneurysm or arteriovenous malformation. Calcified atherosclerotic; plaques are present in the cavernous and supraclinoid internal carotid arteries.; These produce at least mild stenosis. Calcified atherosclerotic plaques are; present in the distal vertebral arteries at the craniovertebral junction. These; produce at least moderate stenosis. Major intracranial vessels are patent. The; vertebral arteries are equal in size.; ; IMPRESSION:; ; 1. There is no aneurysm or arteriovenous malformation.; ; 2. Atherosclerotic disease as described above.; ; ; Signed by; Elijah Hebert MD 04/20/2016 03:19 P; Radiology Order: CT ANGIO NECK Test: CT ANGIO NECK REASON FOR EXAMINATION: tia; unable to obatin mri; CT ANGIO NECK:; ; HISTORY: TIAs.; ; CONTRAST: Isovue-370, 75 mL.; ; Calcified atherosclerotic plaques are present at the distal right common carotid; artery and origins of the right external and internal carotid arteries. There is; moderate stenosis of 60% of the right internal carotid artery at its origin.; There is mild stenosis of 20% of the right external carotid artery at its origin.; Calcified atherosclerotic plaques are present at the distal left common carotid; artery and origins of the left external and internal carotid arteries. There is; severe stenosis of 75% of the left internal carotid artery at its origin. There; is severe stenosis of 70% of the left external carotid artery at its origin.; Small calcified atherosclerotic plaques are present in the common carotid; arteries in the lower neck. There is no significant stenosis. Calcified; atherosclerotic plaques are present in the vertebral arteries at the; craniovertebral junction. The plaques produce at least moderate stenosis.; Calcified atherosclerotic plaques are present at the origins of the great vessels; and vertebral arteries. There is no significant stenosis. The left vertebral; artery arises from the aortic arch.; ; IMPRESSION:; ; 1. Moderate stenosis of 60% of the right internal carotid artery at its origin.; ; 2. 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 sd1 15:58 Patient left the ED. hs1 Signatures: Dispatcher [employer] EDMS Mary Bonilla MD MD sd1 Lavinia Ahn, Rail Track Maintainer Unit lbd Daysi Albarado RN RN kpj Peters, Mary, RN RN mcp Ganter, LoriLee, Fidencio Butler lg RN RN mlb1 Lizy Feliz RN RN hs1 [place] RN RN jc4 Lorie Segundo Joseph, PCA PCA jrd Redder, Kathie klr Baart, Amber nb2 Laura EncinasRN RN ja5 Corrections: (The following items were deleted from the chart) 11:05 08:32 General: Patient is laying in stretcher asleep, arouses easily and is alert and ja5 oriented. Patient denies dizziness, numbness, her speech is clear, she has had intermittent moments of confusion/hallucinations. At 0820 patient stated she sees a leopard in the room and asked what I was wearing on my head. Respirations are even and unlabored, color is pink. SR with PVS showing on environmental monitoring technician. Bed in low position, call warren in reach, daughter is at bedside. . ja5 15:08 10:42 General: Patient is awake, alert and oriented, denies dizziness, speech is clear, ja5 she moves all extremities. Respirations are even and unlabored, color is pink, SR on environmental monitoring technician, as she lays in stretcher with her daughter at the bedside.. ja5 Chart Complete MTDD
--- NOTE | 2016-04-23 21:42 | EDDOCDS ---
Physician Documentation [facility] Name: Sukh Wright Age: 80 yrs Sex: Female : 1935 Arrival Date: 04/20/2016 Time: 07:26 Bed 21 Private MD: Daysi Chatman A Disposition: 04/20/16 10:46 Hospitalization ordered by Alfredo Rivera for Inpatient Admission. Preliminary diagnosis is Transient cerebral ischemic attack, unspecified. - Bed requested for PCU. - Status is Inpatient Admission. hs1 - Condition is Stable. - Problem is new. - Symptoms are resolved. Historical: - Allergies: no known allergies; - Home Meds: 1. aspirin 325 mg Oral TbEC 1 tab once daily (Last dose: 04/19/2016 19:00) 2. Tylenol 325 mg Oral tab 2 tabs as needed for heachache (Last dose: 04/18/2016) - PMHx: blind; Hypertension; - PSHx: Pacemaker Insertion; - Family history: Not pertinent. - Social history: Smoking status: Patient states was never smoker of tobacco. No barriers to communication noted, The patient speaks fluent Kittitian. - : The pt / caregiver states he / she is not on anticoagulants. Home medication list is obtained from family members. - Exposure Risk Screening:: None identified. Vital Signs: 04/20 07:38 BP 198 / 95; Pulse 90; Resp 18; Temp 97.8(O); Pulse Ox 97% on R/A; Pain 0/10; nb2 07:48 Weight 70.03 kg / 154.39 lbs; Height 5 ft. 3 in. (160.02 cm); ja5 08:18 BP 192 / 86 (auto/); ja5 08:18 Pulse 80 MON; Pulse Ox 94% ; ja5 09:40 Pulse 82 MON; Pulse Ox 96% ; ja5 09:41 BP 198 / 84 (auto/); ja5 09:52 BP 186 / 83 (auto/); ja5 09:54 Pulse 82 MON; Pulse Ox 95% ; ja5 09:56 BP 188 / 83 (auto/); ja5 09:56 Pulse 82 MON; Pulse Ox 96% ; ja5 10:11 BP 188 / 84 (auto/); ja5 10:11 Pulse 82 MON; Pulse Ox 96% ; ja5 10:25 Pulse 78 MON; Pulse Ox 95% ; ja5 10:26 BP 181 / 84 (auto/); ja5 10:40 Pulse 78 MON; Pulse Ox 93% ; ja5 10:41 BP 182 / 81 (auto/); ja5 10:55 Pulse 80 MON; Pulse Ox 95% ; ja5 10:56 BP 169 / 72 (auto/); ja5 11:08 Pulse 78 MON; Pulse Ox 94% ; ja5 11:11 BP 167 / 107 (auto/); ja5 11:25 Pulse 78 MON; Pulse Ox 96% ; ja5 11:26 BP 166 / 70 (auto/); ja5 11:36 Pulse Ox 97% ; ja5 11:40 Pulse 78 MON; ja5 11:41 BP 173 / 73 (auto/); ja5 11:49 Pulse 78 MON; Pulse Ox 95% ; ja5 11:56 BP 163 / 72 (auto/); ja5 12:10 Pulse 74 MON; ja5 12:11 BP 152 / 72 (auto/); ja5 12:25 Pulse 82 MON; ja5 12:26 BP 174 / 79 (auto/); ja5 12:33 BP 174 / 79; Pulse 94; Resp 20; Temp 97.9(O); Pulse Ox 97% on R/A; Pain 0/10; ja5 12:39 Pulse 88 MON; Pulse Ox 96% ; ja5 12:41 BP 161 / 75 (auto/); ja5 12:55 Pulse 74 MON; Pulse Ox 94% ; ja5 12:56 BP 172 / 77 (auto/); ja5 13:11 BP 166 / 79 (auto/); ja5 13:15 Pulse 74 MON; Pulse Ox 92% ; ja5 13:25 Pulse 78 MON; Pulse Ox 95% ; ja5 13:26 BP 171 / 79 (auto/); ja5 14:25 Pulse 76 MON; Pulse Ox 95% ; ja5 14:26 BP 222 / 133 (auto/); ja5 14:27 Pulse 82 MON; Pulse Ox 95% ; ja5 14:29 BP 221 / 90 (auto/); ja5 14:33 Pulse 74 MON; Pulse Ox 96% ; ja5 14:34 BP 205 / 88 (auto/); ja5 14:59 Pulse 80 MON; Pulse Ox 95% ; ja5 15:00 BP 208 / 93 (auto/); ja5 07:48 Body Mass Index 27.35 (70.03 kg, 160.02 cm) ja5 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 sd1 07:36 IV Saline Lock ordered. sd1 07:36 Rhythm Strip to chart ordered. sd1 07:37 Basic Metabolic Profile Ordered. EDMS 07:37 CBC with Diff Ordered. EDMS 07:37 Partial Thromboplastin Time Ordered. EDMS 07:38 Prothrombin Time Profile\E\INR Ordered. EDMS 07:38 Chest, 1 View Ordered. EDMS 07:38 Type & Screen Ordered. EDMS 07:38 CT Head Without Contrast Ordered. EDMS 07:38 ECG WITH READING ER PHYS+CARDIAG ordered. EDMS 07:48 BED REQUEST+ADM ordered. EDMS 09:05 Basic Metabolic Profile Reviewed. sd1 09:05 CBC with Diff Reviewed. sd1 09:05 Partial Thromboplastin Time Reviewed. sd1 09:05 Prothrombin Time Profile\E\INR Reviewed. sd1 09:05 Type & Screen Reviewed. sd1 09:05 CT Head Without Contrast Reviewed. sd1 09:05 Chest, 1 View Reviewed. sd1 09:07 UA Ordered. EDMS 09:07 Ammonia (Little Green Tube on Ice, Not Pea Green) Ordered. EDMS 09:07 Venous Blood Gas (large pea green tube on ice) Ordered. EDMS 09:07 Urine Culture Ordered. EDMS 09:24 Financial registration complete. lg 09:34 [facility] [place] [facility] [place] Agreement was scanned into [employer] and attached to record. lg 09:38 Basic Metabolic Profile Reviewed. sd1 09:38 TROPONIN Reviewed. sd1 10:09 Basic Metabolic Profile Reviewed. sd1 10:09 Venous Blood Gas (large pea green tube on ice) Reviewed. sd1 10:09 CARDIAC INJURY PROFILE Reviewed. sd1 10:09 TROPONIN Reviewed. sd1 10:09 THYROID STIMULATING HORMONE Reviewed. sd1 10:11 Aspirin Chewable Tablet 324 mg PO once ordered. sd1 10:13 Drug Eval Toxicology ED Only Ordered. EDMS 10:17 ACETAMINOPHEN LEVEL Ordered. EDMS 10:17 ETHYL ALCOHOL (ETHANOL) Ordered. EDMS 10:17 LIVER PROFILE Ordered. EDMS 10:17 SALICYLATE LEVEL Ordered. EDMS 10:17 VITAMIN B12 LEVEL Ordered. EDMS 11:28 CARDIAC INJURY PROFILE Ordered. EDMS 11:28 CARDIAC INJURY PROFILE Ordered. EDMS 11:28 TROPONIN Ordered. EDMS 11:28 TROPONIN Ordered. EDMS 11:29 Admission / Observation Status ordered. EDMS 11:29 ECHOCARD,DOPPLER/COLOR FLOW ordered. EDMS 11:29 CT ANGIO HEAD Ordered. EDMS 11:29 CT ANGIO NECK Ordered. EDMS 11:29 NPO DIET ordered. EDMS 04/21 20:24 T-Sheet-- Draft Copy was scanned into [employer] and attached to record. klr Administered Medications: 04/20 10:41 Drug: Aspirin 324 mg [aspirin 81 mg chewable tablet (4 tabs)] Route: PO; ja5 Signatures: Dispatcher [employer] EDMS Mary Bonilla MD MD sd1 Corwin Prajapati Reg Reg lg Lizy Feliz, RN RN hs1 Fernanda Martines RN RN sls2 Glenys Marin Jessica, RN RN ja5 The chart was reviewed and I authenticate all verbal orders and agree with the evaluation and treatment provided.Corrections: (The following items were deleted from the chart) 09:13 09:07 CARDIAC INJURY PROFILE+LAB ordered. EDMS EDMS 09:13 09:07 TROPONIN+LAB ordered. EDMS EDMS 09:13 09:09 THYROID STIMULATING HORMONE+LAB ordered. EDMS EDMS 10:17 10:13 ACETAMINOPHEN LEVEL+LAB ordered. EDMS EDMS 10:17 10:13 ETHYL ALCOHOL (ETHANOL)+LAB ordered. EDMS EDMS 10:17 10:13 LIVER PROFILE+LAB ordered. EDMS EDMS 10:17 10:13 SALICYLATE LEVEL+LAB ordered. EDMS EDMS 10:17 10:14 VITAMIN B12 LEVEL+LAB ordered. EDDE EDMS Attachments: 09:34 [facility] [place] [place] Agreement lg 04/21 20:24 T-Sheet-- Draft Copy klr Chart Complete MTDD
--- NOTE | 2016-04-23 21:42 | EDDOCDS ---
Physician Documentation [facility] Name: Sukh Wright Age: 80 yrs Sex: Female : 1935 Arrival Date: 04/20/2016 Time: 07:26 Bed 21 Private MD: Daysi Chatman A Disposition: 04/20/16 10:46 Hospitalization ordered by Alfredo Rivera for Inpatient Admission. Preliminary diagnosis is Transient cerebral ischemic attack, unspecified. - Bed requested for PCU. - Status is Inpatient Admission. hs1 - Condition is Stable. - Problem is new. - Symptoms are resolved. Historical: - Allergies: no known allergies; - Home Meds: 1. aspirin 325 mg Oral TbEC 1 tab once daily (Last dose: 04/19/2016 19:00) 2. Tylenol 325 mg Oral tab 2 tabs as needed for heachache (Last dose: 04/18/2016) - PMHx: blind; Hypertension; - PSHx: Pacemaker Insertion; - Family history: Not pertinent. - Social history: Smoking status: Patient states was never smoker of tobacco. No barriers to communication noted, The patient speaks fluent Norwegian. - : The pt / caregiver states he / she is not on anticoagulants. Home medication list is obtained from family members. - Exposure Risk Screening:: None identified. Vital Signs: 04/20 07:38 BP 198 / 95; Pulse 90; Resp 18; Temp 97.8(O); Pulse Ox 97% on R/A; Pain 0/10; nb2 07:48 Weight 70.03 kg / 154.39 lbs; Height 5 ft. 3 in. (160.02 cm); ja5 08:18 BP 192 / 86 (auto/); ja5 08:18 Pulse 80 MON; Pulse Ox 94% ; ja5 09:40 Pulse 82 MON; Pulse Ox 96% ; ja5 09:41 BP 198 / 84 (auto/); ja5 09:52 BP 186 / 83 (auto/); ja5 09:54 Pulse 82 MON; Pulse Ox 95% ; ja5 09:56 BP 188 / 83 (auto/); ja5 09:56 Pulse 82 MON; Pulse Ox 96% ; ja5 10:11 BP 188 / 84 (auto/); ja5 10:11 Pulse 82 MON; Pulse Ox 96% ; ja5 10:25 Pulse 78 MON; Pulse Ox 95% ; ja5 10:26 BP 181 / 84 (auto/); ja5 10:40 Pulse 78 MON; Pulse Ox 93% ; ja5 10:41 BP 182 / 81 (auto/); ja5 10:55 Pulse 80 MON; Pulse Ox 95% ; ja5 10:56 BP 169 / 72 (auto/); ja5 11:08 Pulse 78 MON; Pulse Ox 94% ; ja5 11:11 BP 167 / 107 (auto/); ja5 11:25 Pulse 78 MON; Pulse Ox 96% ; ja5 11:26 BP 166 / 70 (auto/); ja5 11:36 Pulse Ox 97% ; ja5 11:40 Pulse 78 MON; ja5 11:41 BP 173 / 73 (auto/); ja5 11:49 Pulse 78 MON; Pulse Ox 95% ; ja5 11:56 BP 163 / 72 (auto/); ja5 12:10 Pulse 74 MON; ja5 12:11 BP 152 / 72 (auto/); ja5 12:25 Pulse 82 MON; ja5 12:26 BP 174 / 79 (auto/); ja5 12:33 BP 174 / 79; Pulse 94; Resp 20; Temp 97.9(O); Pulse Ox 97% on R/A; Pain 0/10; ja5 12:39 Pulse 88 MON; Pulse Ox 96% ; ja5 12:41 BP 161 / 75 (auto/); ja5 12:55 Pulse 74 MON; Pulse Ox 94% ; ja5 12:56 BP 172 / 77 (auto/); ja5 13:11 BP 166 / 79 (auto/); ja5 13:15 Pulse 74 MON; Pulse Ox 92% ; ja5 13:25 Pulse 78 MON; Pulse Ox 95% ; ja5 13:26 BP 171 / 79 (auto/); ja5 14:25 Pulse 76 MON; Pulse Ox 95% ; ja5 14:26 BP 222 / 133 (auto/); ja5 14:27 Pulse 82 MON; Pulse Ox 95% ; ja5 14:29 BP 221 / 90 (auto/); ja5 14:33 Pulse 74 MON; Pulse Ox 96% ; ja5 14:34 BP 205 / 88 (auto/); ja5 14:59 Pulse 80 MON; Pulse Ox 95% ; ja5 15:00 BP 208 / 93 (auto/); ja5 07:48 Body Mass Index 27.35 (70.03 kg, 160.02 cm) ja5 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 sd1 07:36 IV Saline Lock ordered. sd1 07:36 Rhythm Strip to chart ordered. sd1 07:37 Basic Metabolic Profile Ordered. EDMS 07:37 CBC with Diff Ordered. EDMS 07:37 Partial Thromboplastin Time Ordered. EDMS 07:38 Prothrombin Time Profile\E\INR Ordered. EDMS 07:38 Chest, 1 View Ordered. EDMS 07:38 Type & Screen Ordered. EDMS 07:38 CT Head Without Contrast Ordered. EDMS 07:38 ECG WITH READING ER PHYS+CARDIAG ordered. EDMS 07:48 BED REQUEST+ADM ordered. EDMS 09:05 Basic Metabolic Profile Reviewed. sd1 09:05 CBC with Diff Reviewed. sd1 09:05 Partial Thromboplastin Time Reviewed. sd1 09:05 Prothrombin Time Profile\E\INR Reviewed. sd1 09:05 Type & Screen Reviewed. sd1 09:05 CT Head Without Contrast Reviewed. sd1 09:05 Chest, 1 View Reviewed. sd1 09:07 UA Ordered. EDMS 09:07 Ammonia (Little Green Tube on Ice, Not Pea Green) Ordered. EDMS 09:07 Venous Blood Gas (large pea green tube on ice) Ordered. EDMS 09:07 Urine Culture Ordered. EDMS 09:24 Financial registration complete. lg 09:34 [facility] [place] Payment Agreement was scanned into [employer] and attached to record. lg 09:38 Basic Metabolic Profile Reviewed. sd1 09:38 TROPONIN Reviewed. sd1 10:09 Basic Metabolic Profile Reviewed. sd1 10:09 Venous Blood Gas (large pea green tube on ice) Reviewed. sd1 10:09 CARDIAC INJURY PROFILE Reviewed. sd1 10:09 TROPONIN Reviewed. sd1 10:09 THYROID STIMULATING HORMONE Reviewed. sd1 10:11 Aspirin Chewable Tablet 324 mg PO once ordered. sd1 10:13 Drug Eval Toxicology ED Only Ordered. EDMS 10:17 ACETAMINOPHEN LEVEL Ordered. EDMS 10:17 ETHYL ALCOHOL (ETHANOL) Ordered. EDMS 10:17 LIVER PROFILE Ordered. EDMS 10:17 SALICYLATE LEVEL Ordered. EDMS 10:17 VITAMIN B12 LEVEL Ordered. EDMS 11:28 CARDIAC INJURY PROFILE Ordered. EDMS 11:28 CARDIAC INJURY PROFILE Ordered. EDMS 11:28 TROPONIN Ordered. EDMS 11:28 TROPONIN Ordered. EDMS 11:29 Admission / Observation Status ordered. EDMS 11:29 ECHOCARD,DOPPLER/COLOR FLOW ordered. EDMS 11:29 CT ANGIO HEAD Ordered. EDMS 11:29 CT ANGIO NECK Ordered. EDMS 11:29 NPO DIET ordered. EDMS 04/21 20:24 T-Sheet-- Draft Copy was scanned into [employer] and attached to record. klr Administered Medications: 04/20 10:41 Drug: Aspirin 324 mg [aspirin 81 mg chewable tablet (4 tabs)] Route: PO; ja5 Signatures: Dispatcher [employer] EDMS Mary Bonilla MD MD sd1 Corwin Prajapati Reg Reg lg Lizy Feliz, RN RN hs1 Fernanda Martines RN RN sls2 Glenys Marin Jessica, RN RN ja5 The chart was reviewed and I authenticate all verbal orders and agree with the evaluation and treatment provided.Corrections: (The following items were deleted from the chart) 09:13 09:07 CARDIAC INJURY PROFILE+LAB ordered. EDMS EDMS 09:13 09:07 TROPONIN+LAB ordered. EDMS EDMS 09:13 09:09 THYROID STIMULATING HORMONE+LAB ordered. EDMS EDMS 10:17 10:13 ACETAMINOPHEN LEVEL+LAB ordered. EDMS EDMS 10:17 10:13 ETHYL ALCOHOL (ETHANOL)+LAB ordered. EDMS EDMS 10:17 10:13 LIVER PROFILE+LAB ordered. EDMS EDMS 10:17 10:13 SALICYLATE LEVEL+LAB ordered. EDMS EDMS 10:17 10:14 VITAMIN B12 LEVEL+LAB ordered. EDWI EDMS Attachments: 09:34 [facility] [place] Payment Agreement lg 04/21 20:24 T-Sheet-- Draft Copy klr Chart Complete MTDD
[2016-04-23 22:00] VITALS: BP 138/63
[2016-04-24 02:00] VITALS: BP 146/65
[2016-04-24] MEDS: SLF 3 ML SYR IV SCH ×3 (05:55→20:59)
[2016-04-24 06:00] VITALS: BP 154/78
[2016-04-24 06:14] LABS: MEAN CORPUSCULAR HEMOGLOBIN 29.2 pg (27.0-33.0); MEAN CORPUSCULAR HGB CONC 32.2 g/dl (32.0-36.5); MEAN CORPUSCULAR VOLUME 90.8 fl (80.0-96.0); RED CELL DISTRIBUTION WIDTH 13.4 % (11.5-14.5); WHITE BLOOD COUNT 4.9 K/mm3 (4.0-10.0)
[2016-04-24 06:29] LABS: ALBUMIN 3.5 GM/DL (3.2-5.2); ALBUMIN/GLOBULIN RATIO 0.85 (1.00-1.93); ALKALINE PHOSPHATASE 83 U/L (45-117); ALT/SGPT 17 U/L (12-78); ANION GAP 11 MEQ/L (8-16); AST/SGOT 19 U/L (15-37); BILIRUBIN,TOTAL 0.4 MG/DL (0.2-1.0); BLOOD UREA NITROGEN 16 MG/DL (7-18); CALCIUM LEVEL 9.1 MG/DL (8.8-10.2); CARBON DIOXIDE LEVEL 24 MEQ/L (21-32); CHLORIDE LEVEL 108 MEQ/L (98-107); GLOMERULAR FILTRATION RATE > 60.0 (>39); GLUCOSE, FASTING 104 MG/DL (83-110); POTASSIUM SERUM 3.8 MEQ/L (3.5-5.1); SODIUM LEVEL 143 MEQ/L (136-145); TOTAL PROTEIN 7.6 GM/DL (6.4-8.2)
[2016-04-24] MEDS: CLOPIDOGREL 75 MG TAB PO SCH (08:00)
[2016-04-24] MEDS: risperiDONE 0.5 MG TAB PO SCH (08:01)
[2016-04-24] MEDS: ATORVASTATIN 20 MG TAB PO SCH (08:01)
[2016-04-24] MEDS: PANTOPRAZOLE 40MG TAB (PROTONIX) PO SCH (08:01)
[2016-04-24] MEDS: INFLUENZA VIRUS VACCINE HIGH DOSE 0.5 ML SYRINGE (90662) IM ONE ×2 (08:02→08:06)
[2016-04-24] MEDS: ACETAMINOPHEN TAB 650MG DOSE (2X325MG) PO PRN (10:38)
--- NOTE | 2016-04-24 11:24 | IPNPDOC ---
Text Note Date of Service The patient was seen on 04/24/16. NOTE Subjective: Pt denies any complaints. No CP/SOB/Palpitations. No MCCALL/Weakness. Objective: PHYSICAL EXAMINATION: General: No acute distress, laying comfortably in bed. HEENT: Moist mucous membranes. Neck: No JVD or lymphadenopathy Cardiac: RRR, No murmurs Pulm: Clear to auscultation b/l. No wheezing, rhonchi Abd: NT/ND + BS Ext: No edema or cyanosis Neuro: Strength 5/5 BUE and BLE. CN 2-12 intact. 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 Negative pronator drift. Negative Babinki. Sensation to fine touch intact. NIH 0. LABORATORY DATA: See below. IMAGING: CTA of the neck 04/20/16 IMPRESSION: 1. Moderate stenosis of 60% of the right internal carotid artery at its origin. 2. Severe stenosis of 75% of the left internal carotid artery at its origin. CTA head 04/20/16 IMPRESSION: 1. There is no aneurysm or arteriovenous malformation. 2. Atherosclerotic disease as described above. 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 No evidence for acute intracranial pathology or trauma/injury. Chest x-ray 04/20/16 Impression: Chronic stable changes. No acute cardiopulmonary process. MICROBIOLOGY: Please see below. ASSESSMENT/PLAN: 1. TIA- patient with left-sided hemiparesis that has resolved by the time the patient presented to the ED. Unable to obtain MRI given PPM. CTA of the head and neck (see above). CT of the head without contrast notable for prior strokes. 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 Patient had been on aspirin 325 daily, and the daughter states she gives it to her daily. Cont atorvastatin. Cont Plavix. PT/OT/ST. 2. Pt likely has baseline dementia. Occasionally has hallucinations that have been going on for >1 year. TSH, B12, ammonia level within normal limits. Electrolytes within normal limits. No new medications have been started. Daughter states pt needs placement as she has trouble taking care of her home, as she is unable to provide 24 hr care. PFS onboard. Risperidone. 3. Carotid stenosis- patient has refused aggressive therapy in the past. Given the findings of severe stenosis within the left ICA, I have discussed these findings with the daughter, who believes her mother would not want surgery. 4. Elevated blood pressure - Started on Amlodipine. BP improved. 5. History of third-degree AV block status post PPM DVT prophylaxis- enoxaparin. Pending placement. Daughter (Jia) phone number is [phone]. VS,Fishbone, I+O VS, Fishbone, I+O Laboratory Tests 04/24/16 05:50 Calcium Level 9.1, Aspartate Amino Transf (AST/SGOT) 19, Alanine Aminotransferase (ALT/SGPT) 17, Alkaline Phosphatase 83, Total Bilirubin 0.4, Total Protein 7.6, Albumin 3.5, Red Blood Count 3.78 L, Mean Corpuscular Volume 90.8, Mean Corpuscular Hemoglobin 29.2, Mean Corpuscular Hemoglobin Concent 32.2 , Red Cell Distribution Width 13.4 Vital Signs Date Time Temp Pulse Resp B/P Pulse Ox O2 Delivery O2 Flow Rate FiO2 04/24/16 06:00 96.5 95 19 154/78 98 Room Air I&O- Last 24 Hours up to 6 AM 04/24/16 06:00 Intake Total 1080 ml Output Total 1600 ml Balance -520 ml MAGALYS BROOKS MD Apr 24, 2016 11:24
[2016-04-24 14:00] VITALS: BP 114/98
[2016-04-24] MEDS: DOXYCYCLINE HYCLATE 100 MG in D5W MINI-BAG PLUS 100 ML IV SCH (16:43)
--- NOTE | 2016-04-24 18:34 | ECGEPIP ---
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
[2016-04-24] MEDS: ASCORBIC ACID 500 MG TAB PO SCH (20:04)
[2016-04-24 22:00] VITALS: BP 143/63
[2016-04-25] MEDS: ACETAMINOPHEN TAB 650MG DOSE (2X325MG) PO PRN ×3 (01:41→23:52)
[2016-04-25 02:00] VITALS: BP 158/78
[2016-04-25] MEDS: DOXYCYCLINE HYCLATE 100 MG in D5W MINI-BAG PLUS 100 ML IV SCH (05:07)
[2016-04-25] MEDS: SLF 3 ML SYR IV SCH (05:07)
[2016-04-25 06:00] VITALS: BP 135/60
[2016-04-25 07:58] LABS: MEAN CORPUSCULAR HEMOGLOBIN 28.8 pg (27.0-33.0); MEAN CORPUSCULAR HGB CONC 31.7 g/dl (32.0-36.5); MEAN CORPUSCULAR VOLUME 90.8 fl (80.0-96.0); RED CELL DISTRIBUTION WIDTH 13.5 % (11.5-14.5); WHITE BLOOD COUNT 4.6 K/mm3 (4.0-10.0)
[2016-04-25] MEDS: ATORVASTATIN 20 MG TAB PO SCH (08:08)
[2016-04-25] MEDS: risperiDONE 0.5 MG TAB PO SCH (08:08)
[2016-04-25] MEDS: PANTOPRAZOLE 40MG TAB (PROTONIX) PO SCH (08:08)
[2016-04-25] MEDS: CLOPIDOGREL 75 MG TAB PO SCH (08:09)
[2016-04-25 08:25] LABS: ALBUMIN 3.7 GM/DL (3.2-5.2); ALBUMIN/GLOBULIN RATIO 1.12 (1.00-1.93); ALKALINE PHOSPHATASE 89 U/L (45-117); ALT/SGPT 16 U/L (12-78); ANION GAP 10 MEQ/L (8-16); AST/SGOT 18 U/L (15-37); BILIRUBIN,TOTAL 0.4 MG/DL (0.2-1.0); BLOOD UREA NITROGEN 18 MG/DL (7-18); CALCIUM LEVEL 8.7 MG/DL (8.8-10.2); CARBON DIOXIDE LEVEL 26 MEQ/L (21-32); CHLORIDE LEVEL 107 MEQ/L (98-107); GLOMERULAR FILTRATION RATE > 60.0 (>39); GLUCOSE, FASTING 100 MG/DL (83-110); POTASSIUM SERUM 3.8 MEQ/L (3.5-5.1); SODIUM LEVEL 143 MEQ/L (136-145)
[2016-04-25 10:00] VITALS: BP 118/69
--- NOTE | 2016-04-25 11:41 | IPNPDOC ---
Text Note Date of Service The patient was seen on 04/25/16. NOTE Subjective: Pt denies any complaints. No CP/SOB/Palpitations. No MCCALL/Weakness. Objective: PHYSICAL EXAMINATION: General: No acute distress, laying comfortably in bed. HEENT: Moist mucous membranes. Neck: No JVD or lymphadenopathy Cardiac: RRR, No murmurs Pulm: Clear to auscultation b/l. No wheezing, rhonchi Abd: NT/ND + BS Ext: No edema or cyanosis Neuro: Strength 5/5 BUE and BLE. CN 2-12 intact. 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 Negative pronator drift. Negative Babinki. Sensation to fine touch intact. NIH 0. LABORATORY DATA: See below. IMAGING: CTA of the neck 04/20/16 IMPRESSION: 1. Moderate stenosis of 60% of the right internal carotid artery at its origin. 2. Severe stenosis of 75% of the left internal carotid artery at its origin. CTA head 04/20/16 IMPRESSION: 1. There is no aneurysm or arteriovenous malformation. 2. Atherosclerotic disease as described above. 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 No evidence for acute intracranial pathology or trauma/injury. Chest x-ray 04/20/16 Impression: Chronic stable changes. No acute cardiopulmonary process. MICROBIOLOGY: Please see below. ASSESSMENT/PLAN: 1. TIA- patient with left-sided hemiparesis that has resolved by the time the patient presented to the ED. Unable to obtain MRI given PPM. CTA of the head and neck (see above). CT of the head without contrast notable for prior strokes. 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 Patient had been on aspirin 325 daily, and the daughter states she gives it to her daily. Cont atorvastatin. Cont Plavix. PT/OT/ST. 2. Pt likely has baseline dementia. Occasionally has hallucinations that have been going on for >1 year. TSH, B12, ammonia level within normal limits. Electrolytes within normal limits. No new medications have been started. Daughter states pt needs placement as she has trouble taking care of her home, as she is unable to provide 24 hr care. PFS onboard. Risperidone. 3. Carotid stenosis- patient has refused aggressive therapy in the past. Given the findings of severe stenosis within the left ICA, I have discussed these findings with the daughter, who believes her mother would not want surgery. 4. Elevated blood pressure - Started on Amlodipine. BP improved. 5. History of third-degree AV block status post PPM DVT prophylaxis- enoxaparin. Pending placement. Placed in [facility]. Daughter (Jia) phone number is [phone]. VS,Fishbone, I+O VS, Fishbone, I+O Laboratory Tests 04/25/16 07:39 Calcium Level 8.7 L, Aspartate Amino Transf (AST/SGOT) 18, Alanine Aminotransferase (ALT/SGPT) 16, Alkaline Phosphatase 89, Total Bilirubin 0.4, Total Protein 7.0, Albumin 3.7, Red Blood Count 3.68 L, Mean Corpuscular Volume 90.8, Mean Corpuscular Hemoglobin 28.8, Mean Corpuscular Hemoglobin Concent 31.7 L, Red Cell Distribution Width 13.5 Vital Signs Date Time Temp Pulse Resp B/P Pulse Ox O2 Delivery O2 Flow Rate FiO2 04/25/16 10:00 96.4 85 18 118/69 97 Room Air I&O- Last 24 Hours up to 6 AM 04/25/16 06:00 Intake Total 1420 ml Output Total 1100 ml Balance 320 ml MAGALYS BROOKS MD Apr 25, 2016 11:41
[2016-04-25 14:00] VITALS: BP 156/75
[2016-04-25] MEDS: DOXYCYCLINE HYCLATE 100 MG TAB PO SCH (20:14)
[2016-04-25] MEDS: ASCORBIC ACID 500 MG TAB PO SCH (20:14)
[2016-04-26 07:03] LABS: MEAN CORPUSCULAR HEMOGLOBIN 29.6 pg (27.0-33.0); MEAN CORPUSCULAR HGB CONC 32.4 g/dl (32.0-36.5); MEAN CORPUSCULAR VOLUME 91.2 fl (80.0-96.0); RED CELL DISTRIBUTION WIDTH 13.6 % (11.5-14.5)
[2016-04-26 07:19] LABS: ALBUMIN 3.4 GM/DL (3.2-5.2); ALBUMIN/GLOBULIN RATIO 0.94 (1.00-1.93); ALKALINE PHOSPHATASE 87 U/L (45-117); ALT/SGPT 17 U/L (12-78); ANION GAP 10 MEQ/L (8-16); AST/SGOT 18 U/L (15-37); BILIRUBIN,TOTAL 0.4 MG/DL (0.2-1.0); BLOOD UREA NITROGEN 15 MG/DL (7-18); CALCIUM LEVEL 8.6 MG/DL (8.8-10.2); CARBON DIOXIDE LEVEL 26 MEQ/L (21-32); CHLORIDE LEVEL 107 MEQ/L (98-107); CREATININE FOR GFR 0.79 MG/DL (0.55-1.02); GLOMERULAR FILTRATION RATE > 60.0 (>39); GLUCOSE, FASTING 110 MG/DL (83-110); POTASSIUM SERUM 3.6 MEQ/L (3.5-5.1); SODIUM LEVEL 143 MEQ/L (136-145)
[2016-04-26] MEDS: PANTOPRAZOLE 40MG TAB (PROTONIX) PO SCH (09:27)
[2016-04-26] MEDS: CLOPIDOGREL 75 MG TAB PO SCH (09:27)
[2016-04-26] MEDS: ATORVASTATIN 20 MG TAB PO SCH (09:28)
[2016-04-26] MEDS: risperiDONE 0.5 MG TAB PO SCH (09:28)
[2016-04-26] MEDS: DOXYCYCLINE HYCLATE 100 MG TAB PO SCH ×2 (09:28→21:56)
[2016-04-26] MEDS: ACETAMINOPHEN TAB 650MG DOSE (2X325MG) PO PRN (17:32)
[2016-04-26] MEDS: ASCORBIC ACID 500 MG TAB PO SCH (21:55)
[2016-04-27 06:00] VITALS: BP 149/89
[2016-04-27 07:04] LABS: MEAN CORPUSCULAR HEMOGLOBIN 29.2 pg (27.0-33.0); MEAN CORPUSCULAR HGB CONC 32.6 g/dl (32.0-36.5); MEAN CORPUSCULAR VOLUME 89.5 fl (80.0-96.0); RED CELL DISTRIBUTION WIDTH 13.4 % (11.5-14.5)
[2016-04-27 07:20] LABS: ALBUMIN 3.2 GM/DL (3.2-5.2); ALBUMIN/GLOBULIN RATIO 0.94 (1.00-1.93); ALKALINE PHOSPHATASE 82 U/L (45-117); ALT/SGPT 15 U/L (12-78); ANION GAP 8 MEQ/L (8-16); AST/SGOT 18 U/L (15-37); BILIRUBIN,TOTAL 0.4 MG/DL (0.2-1.0); BLOOD UREA NITROGEN 17 MG/DL (7-18); CALCIUM LEVEL 8.6 MG/DL (8.8-10.2); CARBON DIOXIDE LEVEL 26 MEQ/L (21-32); CHLORIDE LEVEL 110 MEQ/L (98-107); CREATININE FOR GFR 0.77 MG/DL (0.55-1.02); GLOMERULAR FILTRATION RATE > 60.0 (>39); GLUCOSE, FASTING 92 MG/DL (83-110); POTASSIUM SERUM 3.8 MEQ/L (3.5-5.1); SODIUM LEVEL 144 MEQ/L (136-145); TOTAL PROTEIN 6.6 GM/DL (6.4-8.2)
[2016-04-27] MEDS: ATORVASTATIN 20 MG TAB PO SCH (10:10)
[2016-04-27] MEDS: PANTOPRAZOLE 40MG TAB (PROTONIX) PO SCH (10:11)
[2016-04-27] MEDS: CLOPIDOGREL 75 MG TAB PO SCH (10:11)
[2016-04-27] MEDS: risperiDONE 0.5 MG TAB PO SCH (10:11)
[2016-04-27] MEDS: DOXYCYCLINE HYCLATE 100 MG TAB PO SCH ×2 (10:12→20:43)
[2016-04-27] MEDS: ACETAMINOPHEN TAB 650MG DOSE (2X325MG) PO PRN ×2 (10:21→17:32)
[2016-04-27] MEDS ORDERED: CLOP75TA2 PO (15:03)
[2016-04-27] MEDS ORDERED: AMLO25TA PO (15:03)
[2016-04-27] MEDS ORDERED: RISP0.5T16 PO (15:03)
[2016-04-27] MEDS ORDERED: ATOR1TAB21 PO (15:03)
[2016-04-27] MEDS: ASCORBIC ACID 500 MG TAB PO SCH (20:43)
[2016-04-28 06:00] VITALS: BP 150/70
[2016-04-28 06:41] LABS: MEAN CORPUSCULAR HEMOGLOBIN 29.5 pg (27.0-33.0); MEAN CORPUSCULAR HGB CONC 32.7 g/dl (32.0-36.5); MEAN CORPUSCULAR VOLUME 90.2 fl (80.0-96.0); RED CELL DISTRIBUTION WIDTH 13.3 % (11.5-14.5); WHITE BLOOD COUNT 4.9 K/mm3 (4.0-10.0)
[2016-04-28 06:53] LABS: ALBUMIN 3.1 GM/DL (3.2-5.2); ALBUMIN/GLOBULIN RATIO 0.91 (1.00-1.93); ALKALINE PHOSPHATASE 76 U/L (45-117); ALT/SGPT 12 U/L (12-78); ANION GAP 9 MEQ/L (8-16); AST/SGOT 14 U/L (15-37); BILIRUBIN,TOTAL 0.4 MG/DL (0.2-1.0); BLOOD UREA NITROGEN 17 MG/DL (7-18); CALCIUM LEVEL 8.3 MG/DL (8.8-10.2); CARBON DIOXIDE LEVEL 26 MEQ/L (21-32); CHLORIDE LEVEL 109 MEQ/L (98-107); CREATININE FOR GFR 0.87 MG/DL (0.55-1.02); GLOMERULAR FILTRATION RATE > 60.0 (>39); GLUCOSE, FASTING 108 MG/DL (83-110); POTASSIUM SERUM 3.7 MEQ/L (3.5-5.1); SODIUM LEVEL 144 MEQ/L (136-145); TOTAL PROTEIN 6.5 GM/DL (6.4-8.2)
[2016-04-28] MEDS: PANTOPRAZOLE 40MG TAB (PROTONIX) PO SCH (07:52)
[2016-04-28 07:53] VITALS: BP 170/77
[2016-04-28] MEDS: risperiDONE 0.5 MG TAB PO SCH (07:53)
[2016-04-28] MEDS: DOXYCYCLINE HYCLATE 100 MG TAB PO SCH (07:54)
[2016-04-28] MEDS: CLOPIDOGREL 75 MG TAB PO SCH (07:54)
[2016-04-28] MEDS: ATORVASTATIN 20 MG TAB PO SCH (07:54)
[2016-04-28] MEDS ORDERED: DOXY10CA PO (07:55)
--- NOTE | 2016-04-28 12:33 | DS.PDOC ---
Discharge Summary General Date of Admission Apr 20, 2016 at 11:21 Date of Discharge Apr 28, 2016 at 09:21 Discharge Summary Consults: None Discharge diagnosis: TIA Secondary diagnosis: Dementia, carotid stenosis, hypertension, third degree AV block Hospital course: Patient admitted on 04/20/16 with altered mental status, paranoia, hallucinations , left leg weakness. Patient was brought in to emergency department by EMS. Carotid ultrasound on admission showed carotid stenosis. CT of head showed age- related atrophy, microvascular ischemic changes including old infarcts. Patient was admitted and started on Lasix and atorvastatin. Leg weakness had resolved by the time patient was admitted. On 04/23 urine culture came back positive for greater than 100,000 colony-forming units of strep agalactiae and patient was started on doxycycline. During hospitalization patient's daughter did not feel as though she would be able to care for her, patient family services found patient a bed at [facility] and daughter agreed to patient going there. Progress note on date of discharge: Subjective: Patient says she is doing good today. She says she is sleeping good, eating good. She denies any fevers, chills, sweats, chest pain/pressure, shortness of breath, difficulty breathing, abdominal pain, nausea, vomiting, diarrhea, constipation. Objective: Vitals: Temperature 98.1, pulse 73, respiratory rate 19, blood pressure 170/77, pulse ox 97% on room air Gen.: Patient awake, verbal and able to answer questions appropriately. She does not appear to be in any acute distress Labs: CBC: White blood cells 4.9, hemoglobin and hematocrit 9.8/30.0, platelets 260 Chemistry: Sodium 144, potassium 3.7, chloride 109, carbon dioxide 26, BUN 17, creatinine 0.87, glucose 108, calcium 8.3 Liver profile: AST 14, ALT 12, alkaline phosphatase 76, total protein 6.5, albumin 3.1, total bilirubin 0.4 Assessment: Patient is a 81-year-old female admitted for TIA, altered mental status. Patient is medically stable and at this time will be discharged to care home. Disposition: Discharge patient to [facility] Follow-up: Dr. Chatman in 1 week Activity: As tolerated Diet: 2 g sodium diet Medications on discharge: Amlodipine 2.5 mg by mouth daily Atorvastatin 40 mg by mouth daily Plavix 75 mg by mouth daily Doxycycline 100 mg by mouth twice a day 4 days Risperidone 0.5 mg by mouth daily Acetaminophen 1000 milligrams by mouth when necessary for pain Vitamin C 500 mg by mouth daily at bedtime Calcium 500 mg by mouth daily at bedtime Magnesium oxide 250 mg by mouth daily at bedtime Vitamin D 1000 units by mouth daily at bedtime Cc: Dr. Chatman Time spent on discharge: Greater than 30 minutes Medications Scheduled Amlodipine Besylate (Norvasc) 2.5 Mg Tab 2.5 MG PO DAILY Ascorbic Acid (Ascorbic Acid) 500 Mg Tab 500 MG PO QHS (Reported) Atorvastatin Calcium (Atorvastatin Calcium) 20 Mg Tab 40 MG PO DAILY Calcium (Calcium) 500 Mg Tab 500 MG PO QHS (Reported) Clopidogrel Bisulfate (Clopidogrel) 75 Mg Tab 75 MG PO DAILY Doxycycline Hyclate (Doxycycline Hyclate) 100 Mg Tab 100 MG PO BID Magnesium Oxide (Magnesium) 250 Mg Tab 250 MG PO QHS (Reported) Risperidone (Risperdal) 0.5 Mg Tab 0.5 MG PO DAILY Vitamin D (Vitamin D) 1,000 Unit Cap 1,000 UNIT PO QHS (Reported) Scheduled PRN Acetaminophen (APAP Extra Strength) 500 Mg Tab 1,000 MG PO PRN PRN PRN PAIN ( Reported) Allergies Coded Allergies: No Known Allergies (Verified Allergy, Unknown, 04/08/12) REUBEN ZHOU DO Apr 28, 2016 12:33
== END 2016-04-28 09:21 | DRG 68 ==
LOC: M ED 07:26 → M ED INP 11:21 → M PCU 16:10 → M MSPAV 04-23 15:06
PROVIDERS: ADMIT Internal Medicine; ATTEND Internal Medicine
DX: I65.23 Occlusion and stenosis of bilateral carotid arteries (principal); I44.2 Atrioventricular block, complete; I10 Essential (primary) hypertension; H35.30 Unspecified macular degeneration; H54.0 Blindness, both eyes; F03.90 Unspecified dementia, unspecified severity, without behavioral disturbance, psychotic disturbance, mood disturbance, and anxiety; R41.82 Altered mental status, unspecified; Z95.0 Presence of cardiac pacemaker; Z79.82 Long term (current) use of aspirin; Z79.899 Other long term (current) drug therapy; Z86.73 Personal history of transient ischemic attack (TIA), and cerebral infarction without residual deficits